=== PATIENT | female | born 1975 | race Caucasian/White ===

== ENCOUNTER 2016-11-04 15:12 | Inpatient (IN) | payer OTHER ==
[2016-11-04 15:57] VITALS: BMI 22.3
--- NOTE | 2016-11-04 16:33 | HP ---
COWS - Scale Resting Pulse: 1= [place] 81-100 Sweatin= Chills/Flushing Restless Observation: 0= Sits Still Pupil Size: 0= Normal to Room Light Bone or Joint Aches: 1= Mild Discomfort Runny Nose/ Eye Tearin= None GI Upset > 30mins: 0= None Tremor Observation: 0= None Yawning Observation: 0= None Anxiety or Irritability: 0= None Goose Flesh Skin: 0=Smooth Skin COWS Score: 3 CIWA Score - CIWA Score Nausea/Vomitin-Mild Nausea/No Vomiting Muscle Tremors: 1-None Visible, but [place] Anxiety: 1-Mildly Anxious Agitation: 1-Slight > Activity Paroxysmal Sweats: 1-Minimal Palms Moist Orientation: 0-Oriented Tacttile Disturbances: 1-Very Mild Itch/Numbness Auditory Disturbances: 0-None Visual Disturbances: 0-None Headache: 0-None Present CIWA-Ar Total Score: 6 Admission ROS BHS - HPI Chief Complaint: I need help to stop using drugs Allergies/Adverse Reactions: Allergies Allergy/AdvReac Type Severity Reaction Status Date / Time No Known Allergies Allergy Verified 11/04/16 16:00 History of Present Illness: 41 y/o f pt with a h/o opioid and benzo dep. seeking detox . Exam Limitations: No Limitations - Ebola screening Have you traveled outside of the country in the last 21 days: No Have you had contact with anyone from an Ebola affected area: No Have you been sick,other than usual withdrawal symptoms: No - Review of Systems Constitutional: Night Sweats, Changes in sleep EENT: reports: No Symptoms Reported Respiratory: reports: No Symptoms reported Cardiac: reports: No Symptoms Reported GI: reports: Nausea, Poor Appetite : reports: No Symptoms Reported Musculoskeletal: reports: No Symptoms Reported, Muscle Pain, Joint Stiffness Integumentary: reports: No Symptoms Reported Neuro: reports: No Symptoms reported Endocrine: reports: No Symptoms Reported Hematology: reports: No Symptoms Reported Psychiatric: reports: Anxious, Depressed Other Systems: Reviewed and Negative Patient History - Patient Medical History Hx Anemia: No Hx Asthma: No Hx Chronic Obstructive Pulmonary Disease (COPD): No Hx Cancer: No Hx Cardiac Disorders: No Hx Congestive Heart Failure: No Hx Hypertension: No Hx Hypercholesterolemia: No Hx Pacemaker: No HX Cerebrovascular Accident: No Hx Seizures: Yes (seizure last 10 yrs ago.) Hx Dementia: No Hx Diabetes: No Hx Gastrointestinal Disorders: No Hx Liver Disease: No Hx Genitourinary Disorders: No Hx Sexually Transmitted Disorders: No Hx Renal Disease (ESRD): No Hx Thyroid Disease: No Hx Human Immunodeficiency Virus (HIV): No (negative 2months ago ) Hx Hepatitis C: No Hx Depression: Yes Hx Suicide Attempt: No Hx Bipolar Disorder: No Hx Schizophrenia: No - Patient Surgical History Past Surgical History: Yes Hx Breast Surgery: Yes (augmentation) Hx Orthopedic Surgery: Yes (R shoulder and upper arm sx 2013) Anesthesia Reaction: No - PPD History Previous Implant?: Yes Documented Results: Negative w/o proof Implanted On Prior [facility] Admission?: Yes Date: 04/05/13 Results: 0 mm - Reproductive History Last Menstrual Period: 09/25/12 Patient : No - Smoking Cessation Smoking history: Current every day smoker Have you smoked in the past 12 months: Yes Aproximately how many cigarettes per day: 30 Hx Chewing Tobacco Use: No Initiated information on smoking cessation: Yes 'Breaking Loose' booklet given: 11/04/16 - Substance & Tx. History Hx Alcohol Use: Yes Hx Substance Use: Yes Substance Use Type: Alcohol, Heroin, Opiates, Tranquilizers Hx Substance Use Treatment: Yes - Substances Abused Heroin Route: Injection Frequency: Daily Amount used: 5 bags Age of first use: 36 Date of Last Use: 11/04/16 Alcohol Route: Oral Frequency: Daily Amount used: 3 16 oz beers Age of first use: 36 Date of Last Use: 10/30/16 Alprazolam (Xanax) Route: Oral Frequency: Daily Amount used: 8mg /d Age of first use: 23 Date of Last Use: 11/04/16 Family Disease History - Family Disease History Family History: Denies Admission Physical Exam BHS - Vital Signs Vital Signs: Vital Signs - 24 hr 11/04/16 15:52 Temperature 96 F L Pulse Rate 112 H Respiratory 20 Rate Blood Pressure 118/73 41 y/o f pt aox3 in nad cooperative with exam. - Physical General Appearance: Yes: Intoxicated, Anxious HEENTM: Yes: EOMI, Hearing grossly Normal, Normocephalic, Normal Voice, MAXX, Muffled/Hoarse Voice Respiratory: Yes: Chest Non-Tender, Lungs Clear, Normal Breath Sounds, No Respiratory Distress Neck: Yes: Supple Breast: Yes: Breast Exam Deferred Cardiology: Yes: Regular Rhythm, S1, S2, Tachycardia Abdominal: Yes: Non Tender, Flat, Soft, Increased Bowel Sounds Genitourinary: Yes: Within Normal Limits Back: Yes: Decreased Range of Motion Neurological: Yes: measurer machine II-XII NML intact, Fully Oriented, Alert, Motor Strength 5/5, Normal Response Integumentary: Yes: Moist, Track [place] Lymphatic: Yes: Within Normal Limits - Diagnostic (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 (2) Alcohol dependence Current Visit: Yes Status: Chronic Qualifiers: Substance use status: uncomplicated Qualified Code(s): F10.20 - Alcohol dependence, uncomplicated (3) Anxiety Disorder NOS Current Visit: Yes Status: Chronic (4) Nicotine dependence Current Visit: Yes Status: Chronic Qualifiers: Nicotine product type: cigarettes Substance use status: uncomplicated Qualified Code(s): F17.210 - Nicotine dependence, cigarettes, uncomplicated (5) Opioid dependence Current Visit: Yes Status: Chronic Qualifiers: Substance use status: uncomplicated Qualified Code(s): F11.20 - Opioid dependence, uncomplicated Cleared for Admission [facility] - Detox or Rehab [facility] Level of Care: Medically Managed Detox Regimen/Protocol: Methadone/Valium [facility] Breath Alcohol Content Breath Alcohol Content: 0 Urine Pregancy Test - Result Urine Test Results: Negative- NO Line Present Urine Drug Screen - Results Drug Screen Negative: No Urine Drug Screen Results: OPI-Opiates, BZO-Benzodiazepines, MTD-Methadone, OXY- Oxycodone
[2016-11-04] MEDS ORDERED: LOPERAMIDE HCL 2 MG CAPSULE PO PRN (17:33)
[2016-11-04] MEDS ORDERED: guaiFENesin/D-METHORPHAN HB 10 ML UNIT-DOSE CUPS PO PRN (17:33)
[2016-11-04] MEDS ORDERED: P-EPHED 60MG/TRIPROLIDI 2.5MG TABLET PO PRN (17:33)
[2016-11-04] MEDS ORDERED: MAGNESIUM CITRATE 300 ML BOTTLE PO PRN (17:33)
[2016-11-04] MEDS ORDERED: MAGNESIUM HYDROX 2400MG/30ML ORAL SUSPENSION 30 ML CUP PO PRN (17:33)
[2016-11-04] MEDS ORDERED: NICOTINE POLACRILEX 4 MG GUM BUC PRN (17:33)
[2016-11-04] MEDS ORDERED: MENTHOL/PHENOL 1 EACH UD MM PRN (17:33)
[2016-11-04] MEDS ORDERED: MAG HYDROX/AL HYDROX/SIMETH 30 ML UNIT-DOSE CUP PO PRN (17:33)
[2016-11-04] MEDS ORDERED: hydrOXYzine PAMOATE 25 MG CAPSULE (FP) PO PRN (17:33)
[2016-11-04] MEDS ORDERED: ACETAMINOPHEN 325 MG TABLET (FP) PO PRN (17:33)
[2016-11-04] MEDS ORDERED: diazePAM 5 MG TABLET PO PRN (17:53)
[2016-11-04] MEDS ORDERED: METHADONE HCL 10 MG TABLET (FOR DETOX USE ONLY) PO ONE ×2 (18:00→23:00)
[2016-11-04] MEDS ORDERED: diazePAM 5 MG TABLET PO ONE (18:00)
[2016-11-04] MEDS ORDERED: diphenhydrAMINE HCL 50 MG CAPSULE PO PRN (22:00)
[2016-11-04] MEDS: THIAMINE HCL 100 MG TABLET (FP) PO SCH (22:14)
[2016-11-04] MEDS: diazePAM 5 MG TABLET PO SCH (22:39)
[2016-11-04 23:18] LABS: URINE APPEARANCE CLOUDY; URINE BILIRUBIN NEGATIVE (NEGATIVE); URINE COLOR DKYELLOW; URINE GLUCOSE (UA) NEGATIVE (NEGATIVE); URINE KETONE NEGATIVE (NEGATIVE); URINE NITRITE POSITIVE (NEGATIVE); URINE UROBILINOGEN NEGATIVE E.U./dl (0.2-1.0)
[2016-11-04 23:23] LABS: URINE BLOOD 1+ (NEGATIVE); URINE LEUK ESTERASE 3+ (NEGATIVE); URINE PROTEIN 1+ (NEGATIVE)
[2016-11-04 23:24] LABS: URINE BACTERIA MODERATE /hpf (NONE SEEN); URINE MUCUS MANY; URINE RBC 52 /hpf (0-3); URINE WBC 725 /hpf (3-5); YEAST MODERATE
[2016-11-05] MEDS: diazePAM 5 MG TABLET PO SCH ×3 (05:47→22:37)
[2016-11-05] MEDS ORDERED: METHADONE HCL 10 MG TABLET (FOR DETOX USE ONLY) PO SCH (10:00)
--- NOTE | 2016-11-05 10:07 | PN ---
S CIWA - CIWA Score Nausea/Vomitin Muscle Tremors: 3 Anxiety: 3 Agitation: 3 Paroxysmal Sweats: 1-Minimal Palms Moist Orientation: 0-Oriented Tacttile Disturbances: 1-Very Mild Itch/Numbness Auditory Disturbances: 1-Very Mild Visual Disturbances: 1-Very Mild Sensitivity Headache: 2-Mild CIWA-Ar Total Score: 18 BHS COWS - Scale Resting Pulse: 2= [place] 101-120 Sweatin= Chills/Flushing Restless Observation: 3= Extraneous Movement Pupil Size: 1= Pupils >than Normal Bone or Joint Aches: 2= Severe Diffuse Aches Runny Nose/ Eye Tearin= Runny Nose/Eyes GI Upset > 30mins: 3= Vomiting/Diarrhea Tremor Observation of Outstretched Hands: 2= Slight Tremor Visible Yawning Observation: 1= 1-2x During Session Anxiety or Irritability: 2=Irritable/Anxious Goose Flesh Skin: 0=Smooth Skin COWS Score: 19 S Progress Note (SOAP) Subjective: alert,irritable,anxious,interrupted sleep,tremor,pain in the body and back Objective: 11/05/16 10:04 Vital Signs Temperature 97.7 F 11/05/16 06:00 Pulse Rate 87 11/05/16 06:00 Respiratory Rate 18 11/05/16 06:00 Blood Pressure 108/56 11/05/16 06:00 O2 Sat by Pulse Oximetry (%) 11/05/16 10:05 ekg nsr prolong qt Laboratory Last Values Urine Color Dkyellow 11/04/16 23:02 Urine Appearance Cloudy 11/04/16 23:02 Urine pH 5.0 (5.0-8.0) 11/04/16 23:02 Ur Specific [place] 1.026 (1.001-1.035) 11/04/16 23:02 Urine Protein 1+ (NEGATIVE) H 11/04/16 23:02 Urine Glucose (UA) Negative (NEGATIVE) 11/04/16 23:02 Urine Ketones Negative (NEGATIVE) 11/04/16 23:02 Urine Blood 1+ (NEGATIVE) H 11/04/16 23:02 Urine Nitrite Positive (NEGATIVE) 11/04/16 23:02 Urine Bilirubin Negative (NEGATIVE) 11/04/16 23:02 Urine Urobilinogen Negative E.U./dl (0.2-1.0) 11/04/16 23:02 Ur Leukocyte Esterase 3+ (NEGATIVE) H D 11/04/16 23:02 Urine RBC 52 /hpf (0-3) 11/04/16 23:02 Urine WBC 725 /hpf (3-5) 11/04/16 23:02 Ur Epithelial Cells Moderate /hpf (FEW) 11/04/16 23:02 Urine Bacteria Moderate /hpf (NONE SEEN) 11/04/16 23:02 Urine Mucus Many 11/04/16 23:02 Urine Yeast Moderate 11/04/16 23:02 labs pending Assessment: 11/05/16 10:06 withdrawal symptom Plan: continue detox,repeat ua and urine for c/s for uti,started on bactrim ds 1 tab po bid
[2016-11-05] MEDS: PRENATAL VITAMINS W/ FOLIC ACID TABLET (FP) PO SCH (10:17)
[2016-11-05] MEDS: NICOTINE 21 MG/24 HOURS TOPICAL PATCH TD SCH (10:18)
[2016-11-05] MEDS: SULFAMETHOXAZOLE/TRIMETHOPRIM 800MG/160MG D.S. TABLET PO SCH ×2 (10:19→22:37)
[2016-11-05 10:23] LABS: MCH 27.9 pg (25.7-33.7); MCHC 33.4 g/dl (32.0-36.0); MEAN CELL VOLUME 83.6 fl (80-96); MEAN PLT VOLUME 8.2 fl (7.5-11.1); PLATELET COUNT 232 K/MM3 (134-434); RDW 16.7 % (11.6-15.6); WHITE BLOOD COUNT 4.1 K/mm3 (4.0-10.0)
[2016-11-05 11:45] LABS: HIV 1 & 2 AB NEGATIVE; HIV 1 AGp24 NEGATIVE
[2016-11-05 11:48] LABS: ALBUMIN 2.9 g/dl (3.4-5.0); ALK PHOS 92 U/L (45-117); ANION GAP 7 (8-16); BILIRUBIN,TOTAL 0.4 mg/dL (0.2-1.0); CALCIUM 8.5 mg/dL (8.5-10.1); CO2 29 mmol/L (21-32); CREATININE 0.4 mg/dL (0.55-1.02); GLUCOSE,RANDOM 104 mg/dL (74-106); SGOT/AST 38 U/L (15-37); SGPT/ALT 44 U/L (12-78)
[2016-11-05] MEDS: cloNIDine HCL 0.1 MG TABLET PO SCH ×2 (12:05→23:12)
[2016-11-05] MEDS: CYCLOBENZAPRINE HCL 10 MG TABLET (FP) PO PRN ×2 (12:05→22:37)
--- NOTE | 2016-11-05 13:43 | CONSULT ---
[facility] Psychiatric Consult - Data Date of interview: 11/05/16 Admission source: [facility] Identifying data: Readmission to [facility] for this 41 y/o female seeking detox treatment for alcohol,heroin and xanax dependence.Patient is without children,domiciled,unemployed and supported by relatives. Substance Abuse History: Smoking Cessation. Smoking history: Current every day smoker. Have you smoked in the past 12 months: Yes. Aproximately how many cigarettes per day: 30. Hx Chewing Tobacco Use: No. Initiated information on smoking cessation: Yes. 'Breaking Loose' booklet given: 11/04/16. - Substance & Tx. History. Hx Alcohol Use: Yes. Hx Substance Use: Yes. Substance Use Type : Alcohol, Heroin, Opiates, Tranquilizers. Hx Substance Use Treatment: Yes. - Substances Abused. Heroin. Route: Injection. Frequency: Daily. Amount used: 5 bags. Age of first use: 36. Date of Last Use: 11/04/16. Alcohol. Route: Oral. Frequency: Daily. Amount used: 3 16 oz beers. Age of first use: 36. Date of Last Use: 10/30/16. Alprazolam (Xanax). Route: Oral. Frequency: Daily. Amount used: 8mg /d. Age of first use: 23. Date of Last Use : 11/04/16. Confirmed by patient. Medical History: Sciatica and chronic back pain.Current complaint of pain in right shoulder. Psychiatric History: No history of psychiatric hospitalizations.Prescribed xanax and remeron 30 mg/hs for insomnia.Ms Boss is followed by a private psychiatrist in [facility].Diagnosed with MDD/Anxiety Disorder.Patient denies history of suicide attempts. Physical/Sexual Abuse/Trauma History: Patient denies. Additional Comment: Urine Drug Screen Results: OPI-Opiates, BZO-Benzodiazepines , MTD-Methadone, OXY-Oxycodone.Noted. Mental Status Exam - Mental Status Exam Alert and Oriented to: Time, Place, Person Cognitive Function: Good Patient Appearance: Unkempt, Disheveled Mood: Withdrawn, Anxious, Irritable Affect: Mood Congruent Patient Behavior: Fatigued, Guarded Speech Pattern: Clear, Appropriate Voice Loudness: Normal Thought Process: Goal Oriented Thought Disorder: Not Present Hallucinations: Denies Suicidal Ideation: Denies Homicidal Ideation: Denies Insight/Judgement: Poor Sleep: Poorly, Difficulty falling asleep Appetite: Good Muscle strength/Tone: Normal Gait/Station: Normal Psychiatric Findings - Problem List ([place] 1, 2,3) (1) Alcohol dependence Current Visit: Yes Status: Acute Qualifiers: Substance use status: uncomplicated Qualified Code(s): F10.20 - Alcohol dependence, uncomplicated (2) Opioid dependence Current Visit: Yes Status: Acute Qualifiers: Substance use status: uncomplicated Qualified Code(s): F11.20 - Opioid dependence, uncomplicated (3) Sedative dependence Current Visit: Yes Status: Acute (4) Nicotine dependence Current Visit: Yes Status: Acute Qualifiers: Nicotine product type: cigarettes Substance use status: uncomplicated Qualified Code(s): F17.210 - Nicotine dependence, cigarettes, uncomplicated (5) Anxiety Disorder NOS Current Visit: Yes Status: Chronic (6) Insomnia Current Visit: Yes Status: Acute - Initial Treatment Plan Initial Treatment Plan: Psychoeducation.Detoxification.Remeron 30 mg po hs.Side effects/benefits discussed with the patient.She agrees with this careplan.Observation.Pharmacy claims reviewed (filled scripts for remeron on 05/27 @ [facility] # [id number]).No scripts needed at discharge.
--- NOTE | 2016-11-05 13:46 | EKG ---
Test Reason : Blood Pressure : / mmHG Vent. Rate : 100 BPM Atrial Rate : 100 BPM P-R Int : 140 ms QRS Dur : 080 ms QT Int : 398 ms P-R-T Axes : 064 047 060 degrees QTc Int : 513 ms NORMAL SINUS RHYTHM PROLONGED QT ABNORMAL ECG WHEN COMPARED WITH ECG OF 24-FEB-2013 12:52, NO SIGNIFICANT CHANGE WAS FOUND Confirmed by JEAN RAY MD ([id number]) on 11/05/2016 1:46:37 PM Referred By: Confirmed By:JEAN RAY MD
[2016-11-05] MEDS: IBUPROFEN 400 MG TABLET (FP) PO PRN (14:07)
[2016-11-05] MEDS: THIAMINE HCL 100 MG TABLET (FP) PO SCH (22:37)
[2016-11-05] MEDS: MIRTAZAPINE 30 MG TABLET (FP) PO SCH (22:37)
[2016-11-05 23:25] LABS: URINE APPEARANCE CLOUDY; URINE BILIRUBIN NEGATIVE (NEGATIVE); URINE COLOR YELLOW; URINE GLUCOSE (UA) NEGATIVE (NEGATIVE); URINE KETONE NEGATIVE (NEGATIVE); URINE NITRITE POSITIVE (NEGATIVE); URINE PROTEIN NEGATIVE (NEGATIVE); URINE UROBILINOGEN NEGATIVE E.U./dl (0.2-1.0)
[2016-11-05 23:26] LABS: URINE BLOOD 1+ (NEGATIVE); URINE LEUK ESTERASE 3+ (NEGATIVE)
[2016-11-05 23:30] LABS: URINE BACTERIA RARE /hpf (NONE SEEN); URINE MUCUS RARE; URINE RBC 13 /hpf (0-3); URINE WBC 610 /hpf (3-5)
[2016-11-06] MEDS: NICOTINE 21 MG/24 HOURS TOPICAL PATCH TD SCH (10:30)
[2016-11-06] MEDS: METHADONE HCL 5 MG TABLET (FOR DETOX USE ONLY) PO SCH (10:30)
[2016-11-06] MEDS: cloNIDine HCL 0.1 MG TABLET PO SCH ×2 (10:30→22:31)
[2016-11-06] MEDS: SULFAMETHOXAZOLE/TRIMETHOPRIM 800MG/160MG D.S. TABLET PO SCH ×2 (10:30→22:31)
[2016-11-06] MEDS: diazePAM 5 MG TABLET PO SCH ×2 (10:30→22:31)
[2016-11-06] MEDS: CYCLOBENZAPRINE HCL 10 MG TABLET (FP) PO PRN (10:30)
[2016-11-06] MEDS: PRENATAL VITAMINS W/ FOLIC ACID TABLET (FP) PO SCH (10:30)
--- NOTE | 2016-11-06 10:38 | PN ---
[facility] CIWA - CIWA Score Nausea/Vomitin Muscle Tremors: 3 Anxiety: 3 Agitation: 2 Paroxysmal Sweats: 1-Minimal Palms Moist Orientation: 0-Oriented Tacttile Disturbances: 1-Very Mild Itch/Numbness Auditory Disturbances: 1-Very Mild Visual Disturbances: 1-Very Mild Sensitivity Headache: 2-Mild CIWA-Ar Total Score: 17 BHS COWS - Scale Resting Pulse: 1= [place] 81-100 Sweatin= Chills/Flushing Restless Observation: 3= Extraneous Movement Pupil Size: 1= Pupils >than Normal Bone or Joint Aches: 2= Severe Diffuse Aches Runny Nose/ Eye Tearin= Runny Nose/Eyes GI Upset > 30mins: 2= Nausea/Diarrhea Tremor Observation of Outstretched Hands: 2= Slight Tremor Visible Yawning Observation: 1= 1-2x During Session Anxiety or Irritability: 2=Irritable/Anxious Goose Flesh Skin: 0=Smooth Skin COWS Score: 17 [facility] Progress Note (SOAP) Subjective: ALERT,IRRITABLE,ANXIOUS,INTERRUPTED SLEEP,PAIN IN THE BODY AND BACK Objective: 11/06/16 10:36 Vital Signs Temperature 97.2 F L 11/06/16 10:20 Pulse Rate 93 H 11/06/16 10:20 Respiratory Rate 20 11/06/16 10:20 Blood Pressure 109/83 11/06/16 10:20 O2 Sat by Pulse Oximetry (%) Laboratory Last Values WBC 4.1 K/mm3 (4.0-10.0) D 11/05/16 07:00 RBC 3.97 M/mm3 (3.60-5.2) 11/05/16 07:00 Hgb 11.1 GM/dL (10.7-15.3) D 11/05/16 07:00 Hct 33.2 % (32.4-45.2) 11/05/16 07:00 MCV 83.6 fl (80-96) 11/05/16 07:00 MCHC 33.4 g/dl (32.0-36.0) 11/05/16 07:00 RDW 16.7 % (11.6-15.6) H 11/05/16 07:00 Plt Count 232 K/MM3 (134-434) 11/05/16 07:00 MPV 8.2 fl (7.5-11.1) D 11/05/16 07:00 Sodium 140 mmol/L (136-145) 11/05/16 07:00 Potassium 3.7 mmol/L (3.5-5.1) D 11/05/16 07:00 Chloride 104 mmol/L (98-107) 11/05/16 07:00 Carbon Dioxide 29 mmol/L (21-32) 11/05/16 07:00 Anion Gap 7 (8-16) L 11/05/16 07:00 BUN 9 mg/dL (7-18) D 11/05/16 07:00 Creatinine 0.4 mg/dL (0.55-1.02) L D 11/05/16 07:00 Creat Clearance w eGFR > 60 (>60) 11/05/16 07:00 Random Glucose 104 mg/dL (74-106) D 11/05/16 07:00 Calcium 8.5 mg/dL (8.5-10.1) 11/05/16 07:00 Total Bilirubin 0.4 mg/dL (0.2-1.0) 11/05/16 07:00 AST 38 U/L (15-37) H D 11/05/16 07:00 ALT 44 U/L (12-78) 11/05/16 07:00 Alkaline Phosphatase 92 U/L (45-117) D 11/05/16 07:00 Total Protein 6.0 g/dl (6.4-8.2) L D 11/05/16 07:00 Albumin 2.9 g/dl (3.4-5.0) L D 11/05/16 07:00 Urine Color Yellow 11/05/16 14:04 Urine Appearance Cloudy 11/05/16 14:04 Urine pH 5.0 (5.0-8.0) 11/05/16 14:04 Ur Specific [place] 1.015 (1.001-1.035) 11/05/16 14:04 Urine Protein Negative (NEGATIVE) 11/05/16 14:04 Urine Glucose (UA) Negative (NEGATIVE) 11/05/16 14:04 Urine Ketones Negative (NEGATIVE) 11/05/16 14:04 Urine Blood 1+ (NEGATIVE) H 11/05/16 14:04 Urine Nitrite Positive (NEGATIVE) 11/05/16 14:04 Urine Bilirubin Negative (NEGATIVE) 11/05/16 14:04 Urine Urobilinogen Negative E.U./dl (0.2-1.0) 11/05/16 14:04 Ur Leukocyte Esterase 3+ (NEGATIVE) H 11/05/16 14:04 Urine RBC 13 /hpf (0-3) 11/05/16 14:04 Urine WBC 610 /hpf (3-5) 11/05/16 14:04 Ur Epithelial Cells Many /hpf (FEW) 11/05/16 14:04 Urine Bacteria Rare /hpf (NONE SEEN) 11/05/16 14:04 Urine Mucus Rare 11/05/16 14:04 Urine Yeast Moderate 11/04/16 23:02 RPR Titer Nonreactive (NONREACTIVE) 11/05/16 07:00 HIV 1&2 Antibody Screen Negative 11/05/16 07:00 HIV P24 Antigen Negative 11/05/16 07:00 Assessment: 11/06/16 10:37 WITHDRAWAL SYMPTOM Plan: CONTINUE DETOX,URINE FOR C/S
[2016-11-06] MEDS: IBUPROFEN 400 MG TABLET (FP) PO PRN (19:47)
[2016-11-06] MEDS: THIAMINE HCL 100 MG TABLET (FP) PO SCH (22:31)
[2016-11-06] MEDS: MIRTAZAPINE 30 MG TABLET (FP) PO SCH (22:31)
[2016-11-07] MEDS: CYCLOBENZAPRINE HCL 10 MG TABLET (FP) PO PRN ×2 (06:21→20:55)
[2016-11-07] MEDS: IBUPROFEN 400 MG TABLET (FP) PO PRN ×2 (06:21→13:06)
[2016-11-07] MEDS: SULFAMETHOXAZOLE/TRIMETHOPRIM 800MG/160MG D.S. TABLET PO SCH ×2 (10:26→22:07)
[2016-11-07] MEDS: diazePAM 5 MG TABLET PO SCH ×2 (10:26→22:07)
[2016-11-07] MEDS: METHADONE HCL 5 MG TABLET (FOR DETOX USE ONLY) PO SCH (10:26)
[2016-11-07] MEDS: cloNIDine HCL 0.1 MG TABLET PO SCH ×2 (10:26→22:09)
[2016-11-07] MEDS: PRENATAL VITAMINS W/ FOLIC ACID TABLET (FP) PO SCH (10:26)
[2016-11-07] MEDS: NICOTINE 21 MG/24 HOURS TOPICAL PATCH TD SCH (10:26)
--- NOTE | 2016-11-07 14:03 | PN ---
S Progress Note (SOAP) Subjective: ALERT,IRRITABLE,ANXIOUS,INTERRUPTED SLEEP,ACHING PAIN Objective: 11/07/16 14:03 Vital Signs Temperature 97.2 F L 11/07/16 10:25 Pulse Rate 83 11/07/16 10:25 Respiratory Rate 18 11/07/16 10:25 Blood Pressure 101/71 11/07/16 10:25 O2 Sat by Pulse Oximetry (%) 11/07/16 14:04 URINE FOR C/S PENDING Assessment: 11/07/16 14:04 WITHDRAWAL SYMPTOM Plan: CONTINUE DETOX
[2016-11-07] MEDS: MIRTAZAPINE 30 MG TABLET (FP) PO SCH (22:07)
[2016-11-07] MEDS: THIAMINE HCL 100 MG TABLET (FP) PO SCH (22:07)
[2016-11-08] MEDS ORDERED: METHADONE HCL 10 MG TABLET (FOR DETOX USE ONLY) PO SCH (10:00)
[2016-11-08] MEDS ORDERED: diazePAM 5 MG TABLET PO SCH (10:00)
--- NOTE | 2016-11-08 10:16 | PN ---
[facility] Progress Note (SOAP) Subjective: feeling better little sweats anxious Objective: 11/08/16 10:15 Vital Signs Temperature 97.7 F 11/08/16 06:00 Pulse Rate 64 11/08/16 06:00 Respiratory Rate 16 11/08/16 06:00 Blood Pressure 100/58 11/08/16 06:00 O2 Sat by Pulse Oximetry (%) awake/alert ambulating no acute distress Assessment: 11/08/16 10:15 withdrawal sx Plan: continue detox increase fluids d/c in am
[2016-11-08] MEDS: SULFAMETHOXAZOLE/TRIMETHOPRIM 800MG/160MG D.S. TABLET PO SCH ×2 (10:33→22:10)
[2016-11-08] MEDS: cloNIDine HCL 0.1 MG TABLET PO SCH ×2 (10:33→22:10)
[2016-11-08] MEDS: PRENATAL VITAMINS W/ FOLIC ACID TABLET (FP) PO SCH (10:33)
[2016-11-08] MEDS: NICOTINE 21 MG/24 HOURS TOPICAL PATCH TD SCH (10:33)
[2016-11-08] MEDS: IBUPROFEN 400 MG TABLET (FP) PO PRN ×2 (10:37→19:36)
--- NOTE | 2016-11-08 12:52 | PN ---
[facility] Progress Note Note: Psychiatry Attending's note : Asked to reconsult. Issue : refractory insomnia.Remeron 30 mg/hs not effective. Ms Boss gets 60 mg/hs from her outpatient psychiatrist. Hospital course is otherwise unremarkable.Patient is stable. About to transition to a rehabilitation program in the morning. Intervention : Principles of sleep hygiene are discussed with the patient. Remeron is increased to 45 mg po hs.See new Orders. Side effects/benefits discussed with patient. Ms Boss is in agreement with this careplan. .
[2016-11-08] MEDS ORDERED: MIRTAZAPINE 15 MG TABLET (FP) PO SCH (22:00)
[2016-11-08] MEDS: THIAMINE HCL 100 MG TABLET (FP) PO SCH (22:11)
[2016-11-09] MEDS ORDERED: METHADONE HCL 5 MG TABLET (FOR DETOX USE ONLY) PO SCH (06:00)
[2016-11-09 06:33] VITALS: BP 106/53; PULSE 84; TEMP 97.3
--- NOTE | 2016-11-09 09:08 | DS ---
[facility] Detox Discharge Summary Admission Date: 11/04/16 Discharge Date: 11/09/16 - History Present History: Alcohol Dependence, Cannabis Dependence, Cocaine Dependence, Opioid Dependence - Physical Exam Results Vital Signs: Vital Signs Temperature 97.3 F L 11/09/16 06:00 Pulse Rate 84 11/09/16 06:00 Respiratory Rate 16 11/09/16 06:00 Blood Pressure 106/53 11/09/16 06:00 O2 Sat by Pulse Oximetry (%) - Treatment Hospital Course: Detox Protocol Followed, Detoxed Safely, Responded well, Discharged Condition Good - Medication Discharge Medications: Ambulatory Orders Escitalopram Oxalate [Lexapro -] 10 mg PO DAILY 11/04/16 Mirtazapine [Remeron -] 60 mg PO HS 11/04/16 Sulfamethoxazole/Trimethoprim [Bactrim DS -] 1 each PO BID #14 tablet 11/09/16 - Diagnosis (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 (2) Alcohol dependence Current Visit: Yes Status: Chronic Qualifiers: Substance use status: uncomplicated Qualified Code(s): F10.20 - Alcohol dependence, uncomplicated (3) Anxiety Disorder NOS Current Visit: Yes Status: Chronic (4) Nicotine dependence Current Visit: Yes Status: Chronic Qualifiers: Nicotine product type: cigarettes Substance use status: uncomplicated Qualified Code(s): F17.210 - Nicotine dependence, cigarettes, uncomplicated (5) Opioid dependence Current Visit: Yes Status: Chronic Qualifiers: Substance use status: uncomplicated Qualified Code(s): F11.20 - Opioid dependence, uncomplicated (6) UTI (urinary tract infection) Current Visit: Yes Status: Acute Qualifiers: Urinary tract infection type: acute cystitis - AMA Did Patient Leave Against Medical Advice: No
== END 2016-11-09 09:00 | disposition home or self-care (01) | DRG 773 ==
LOC: YASAS 15:12 → Y6N 16:36
PROVIDERS: ADMIT Internal Medicine Addiction Medicine; ATTEND Internal Medicine Addiction Medicine
PROC: HZ2ZZZZ Detoxification Services for Substance Abuse Treatment (ICD-10-PCS; principal; 2016-11-09)
DX: F11.20 Opioid dependence, uncomplicated (principal); F13.20 Sedative, hypnotic or anxiolytic dependence, uncomplicated; F10.20 Alcohol dependence, uncomplicated; F17.210 Nicotine dependence, cigarettes, uncomplicated; F41.9 Anxiety disorder, unspecified; G47.00 Insomnia, unspecified; N30.00 Acute cystitis without hematuria
CPT/HCPCS: 36415; 80053; 81003; 81015; 85027; 86593; 87086; 87186; 87389; 93005; 93010

== ENCOUNTER 2017-06-28 12:57 | Inpatient (IN) | payer OTHER ==
[2017-06-28 13:59] VITALS: BMI 21.2
--- NOTE | 2017-06-28 19:18 | HP ---
COWS - Scale Resting Pulse: 2= [place] 101-120 Sweatin= Chills/Flushing Restless Observation: 3= Extraneous Movement Pupil Size: 0= Normal to Room Light Bone or Joint Aches: 2= Severe Diffuse Aches Runny Nose/ Eye Tearin= Nasal Congestion GI Upset > 30mins: 3= Vomiting/Diarrhea Tremor Observation: 2= Slight Tremor Visible Yawning Observation: 0= None Anxiety or Irritability: 1=Feels Anxious/Irritable Goose Flesh Skin: 0=Smooth Skin COWS Score: 15 Admission [facility] Chief Complaint: withdrawal sx Allergies/Adverse Reactions: Allergies Allergy/AdvReac Type Severity Reaction Status Date / Time No Known Allergies Allergy Verified 06/28/17 16:41 History of Present Illness: 41 years old female with long history of heroin nicotine dependence has depression is admitted to detox Exam Limitations: No Limitations - Ebola screening Have you traveled outside of the country in the last 21 days: No Have you had contact with anyone from an Ebola affected area: No Have you been sick,other than usual withdrawal symptoms: No Do you have a fever: No - Review of Systems Constitutional: Loss of Appetite, Changes in sleep, Unintentional Wgt. Loss, Unexplained wgt Loss EENT: reports: No Symptoms Reported Respiratory: reports: SOB with Exertion Cardiac: reports: No Symptoms Reported GI: reports: Diarrhea, Nausea, Poor Appetite, Poor Fluid Intake, Vomiting, Abdominal cramping : reports: No Symptoms Reported Musculoskeletal: reports: Back Pain, Joint Pain, Muscle Pain, Neck Pain Integumentary: reports: Change in Color (iv heroin both arms + right lateral of neck), Rash (buttocks) Endocrine: reports: No Symptoms Reported Hematology: reports: No Symptoms Reported Psychiatric: reports: Judgement Intact, Orientated x3, Anxious, Depressed Other Systems: Reviewed and Negative Patient History - Patient Medical History Hx Anemia: No Hx Asthma: No Hx Chronic Obstructive Pulmonary Disease (COPD): Yes Hx Cancer: No Hx Cardiac Disorders: No Hx Congestive Heart Failure: No Hx Hypertension: No Hx Hypercholesterolemia: No Hx Pacemaker: No HX Cerebrovascular Accident: No Hx Seizures: No (seizure last 10 yrs ago.) Hx Dementia: No Hx Diabetes: No Hx Gastrointestinal Disorders: No Hx Liver Disease: No Hx Genitourinary Disorders: No Hx Sexually Transmitted Disorders: No Hx Renal Disease (ESRD): No Hx Thyroid Disease: No Hx Human Immunodeficiency Virus (HIV): No (negative 2months ago ) Hx Hepatitis C: No Hx Depression: Yes Hx Suicide Attempt: No Hx Bipolar Disorder: No Hx Schizophrenia: No - Patient Surgical History Past Surgical History: Yes Hx Neurologic Surgery: No Hx Cataract Extraction: No Hx Cardiac Surgery: No Hx Lung Surgery: No Hx Breast Surgery: Yes (augmentation) Hx Breast Biopsy: No Hx Abdominal Surgery: No Hx Appendectomy: No Hx Cholecystectomy: No Hx Genitourinary Surgery: No Hx Section: No Hx Orthopedic Surgery: Yes (R shoulder and upper arm sx 2013) Hx Hysterectomy: No Anesthesia Reaction: No - PPD History Previous Implant?: Yes Documented Results: Negative w/proof Implanted On Prior [facility] Admission?: Yes Date: 11/06/16 Results: 0 mm PPD to be Administered?: No - Reproductive History Patient is a Female of Child Bearing Age (11 -55 yrs old): Yes Last Menstrual Period: 06/28/15 Patient : No - Smoking Cessation Smoking history: Current every day smoker Have you smoked in the past 12 months: Yes Aproximately how many cigarettes per day: 20 Cigars Per Day: 0 Hx Chewing Tobacco Use: No Initiated information on smoking cessation: Yes 'Breaking Loose' booklet given: 06/28/17 - Substance & Tx. History Hx Alcohol Use: No Hx Substance Use: Yes Substance Use Type: Cocaine, Heroin Hx Substance Use Treatment: Yes (11/2016) - Substances Abused Heroin Route: Injection Frequency: 3-6 times per week Amount used: 3 bags Age of first use: 36 Date of Last Use: 06/28/17 Family Disease History - Family Disease History Family Disease History: Heart Disease: Grandparent, Other: Brother ( overdose) Admission Physical Exam BHS - Vital Signs Vital Signs: Vital Signs - 24 hr 06/28/17 13:45 Temperature 98.9 F Pulse Rate 104 H Respiratory 18 Rate Blood Pressure 114/70 - Physical General Appearance: Yes: Appropriately Dressed, Mild Distress, Thin, Tremorous, Irritable, Sweating, Anxious HEENTM: Yes: Hearing grossly Normal, Normal ENT Inspection, Normocephalic, Normal Voice Respiratory: Yes: Chest Non-Tender, No Respiratory Distress, No Accessory Muscle Use, Hyperresonant Neck: Yes: Supple, Trachea in good position Breast: Yes: Breasts Symetrical Cardiology: Yes: Regular Rhythm, S1, S2, Tachycardia Abdominal: Yes: Non Tender, Soft, Increased Bowel Sounds Genitourinary: Yes: Within Normal Limits Back: Yes: Normal Inspection Musculoskeletal: Yes: full range of Motion, Gait Steady, Back pain, Muscle Pain Extremities: Yes: Normal Range of Motion, Non-Tender, Tremors, Other (arms + right lateral neck iv heroin) Neurological: Yes: Fully Oriented, Alert, Motor Strength 5/5, Normal Response, Depressed Affect Integumentary: Yes: Warm, Rash (bottocks), Track Brito Lymphatic: Yes: Within Normal Limits - Diagnostic (1) Opioid dependence with withdrawal Current Visit: Yes Status: Acute (2) Nicotine dependence Current Visit: Yes Status: Acute Qualifiers: Nicotine product type: cigarettes Substance use status: in withdrawal Qualified Code(s): F17.213 - Nicotine dependence, cigarettes, with withdrawal (3) Weight loss Current Visit: Yes Status: Acute (4) COPD (chronic obstructive pulmonary disease) Current Visit: Yes Status: Chronic Qualifiers: COPD type: emphysema Emphysema type: panlobular Qualified Code(s): J43.1 - Panlobular emphysema (5) Acneiform rash Current Visit: Yes Status: Chronic Comment: bottocks Cleared for Admission [facility] - Detox or Rehab [facility] Level of Care: Medically Managed Detox Regimen/Protocol: Methadone [facility] Breath Alcohol Content Breath Alcohol Content: 0 Urine Pregancy Test - Result Urine Test Results: Negative- NO Line Present Urine Drug Screen - Results Drug Screen Negative: No Urine Drug Screen Results: MIHAELA-Cocaine, OPI-Opiates, AMP-Amphetamines, BZO- Benzodiazepines
[2017-06-28] MEDS ORDERED: MENTHOL/PHENOL 1 EACH UD MM PRN (19:25)
[2017-06-28] MEDS ORDERED: NICOTINE POLACRILEX 4 MG GUM BC PRN (19:25)
[2017-06-28] MEDS ORDERED: P-EPHED 60MG/TRIPROLIDI 2.5MG TABLET PO PRN (19:25)
[2017-06-28] MEDS ORDERED: IBUPROFEN 400 MG TABLET (FP) PO PRN (19:25)
[2017-06-28] MEDS ORDERED: guaiFENesin/D-METHORPHAN HB 10 ML UNIT-DOSE CUPS PO PRN (19:25)
[2017-06-28] MEDS ORDERED: METHADONE HCL 10 MG TABLET (FOR DETOX USE ONLY) PO ONE ×2 (19:25→23:00)
[2017-06-28] MEDS ORDERED: LOPERAMIDE HCL 2 MG CAPSULE PO PRN (19:25)
[2017-06-28] MEDS ORDERED: ACETAMINOPHEN 325 MG TABLET (FP) PO PRN (19:25)
[2017-06-28] MEDS ORDERED: MAGNESIUM CITRATE 300 ML BOTTLE PO PRN (19:25)
[2017-06-28] MEDS ORDERED: MAGNESIUM HYDROX 2400MG/30ML ORAL SUSPENSION 30 ML CUP PO PRN (19:25)
[2017-06-28] MEDS ORDERED: MAG HYDROX/AL HYDROX/SIMETH 30 ML UNIT-DOSE CUP PO PRN (19:25)
[2017-06-28] MEDS ORDERED: ALBUTEROL SO4 18 GM HFA INHALER IH PRN (19:36)
[2017-06-28] MEDS: diazePAM 5 MG TABLET PO PRN (20:47)
[2017-06-28] MEDS: THIAMINE HCL 100 MG TABLET (FP) PO SCH (22:27)
[2017-06-29 01:35] LABS: URINE APPEARANCE SLCLOUDY; URINE BILIRUBIN NEGATIVE (NEGATIVE); URINE BLOOD NEGATIVE (NEGATIVE); URINE COLOR YELLOW; URINE GLUCOSE (UA) NEGATIVE (NEGATIVE); URINE KETONE NEGATIVE (NEGATIVE); URINE LEUK ESTERASE NEGATIVE (NEGATIVE); URINE NITRITE NEGATIVE (NEGATIVE); URINE PROTEIN NEGATIVE (NEGATIVE); URINE UROBILINOGEN NEGATIVE mg/dL (0.2-1.0)
[2017-06-29 09:18] LABS: URINE LEUK ESTERASE Negative (NEGATIVE)
--- NOTE | 2017-06-29 09:58 | EKG ---
Test Reason : Blood Pressure : / mmHG Vent. Rate : 107 BPM Atrial Rate : 107 BPM P-R Int : 132 ms QRS Dur : 080 ms QT Int : 386 ms P-R-T Axes : 057 060 073 degrees QTc Int : 515 ms SINUS TACHYCARDIA CANNOT RULE OUT ANTERIOR INFARCT , AGE UNDETERMINED ABNORMAL ECG WHEN COMPARED WITH ECG OF 04-NOV-2016 16:58, NONSPECIFIC T WAVE ABNORMALITY NOW EVIDENT IN ANTERIOR LEADS Confirmed by ARELIS LUNDBERG, CHAGO ([id number]) on 06/29/2017 9:58:20 AM Referred By: Confirmed By:CHAGO INFANTE MD
[2017-06-29] MEDS ORDERED: METHADONE HCL 10 MG TABLET (FOR DETOX USE ONLY) PO ONE (10:00)
[2017-06-29 10:12] LABS: MCH 26.4 pg (25.7-33.7); MCHC 32.2 g/dl (32.0-36.0); MEAN CELL VOLUME 81.9 fl (80-96); MEAN PLT VOLUME 8.3 fl (7.5-11.1); PLATELET COUNT 292 K/MM3 (134-434); RDW 18.4 % (11.6-15.6); WHITE BLOOD COUNT 5.8 K/mm3 (4.0-10.0)
--- NOTE | 2017-06-29 10:17 | PN ---
BHS COWS - Scale Resting Pulse: 1= [place] 81-100 Sweatin=Flushed/Facial Moisture Restless Observation: 1= Difficult to Sit Still Pupil Size: 0= Normal to Room Light Bone or Joint Aches: 2= Severe Diffuse Aches Runny Nose/ Eye Tearin= Runny Nose/Eyes GI Upset > 30mins: 0= None Tremor Observation of Outstretched Hands: 2= Slight Tremor Visible Yawning Observation: 2= >3x During Session Anxiety or Irritability: 2=Irritable/Anxious Goose Flesh Skin: 0=Smooth Skin COWS Score: 14 BHS Progress Note (SOAP) Subjective: agitation sweats body aches interrupted sleep Objective: 06/29/17 10:16 Vital Signs Temperature 96.9 F L 06/29/17 06:13 Pulse Rate 86 06/29/17 06:13 Respiratory Rate 18 06/29/17 06:13 Blood Pressure 105/61 06/29/17 06:13 O2 Sat by Pulse Oximetry (%) Laboratory Tests 06/28/17 06/29/17 23:36 07:00 WBC 5.8 D RBC 4.05 Hgb 10.7 Hct 33.2 MCV 81.9 MCH 26.4 MCHC 32.2 RDW 18.4 H D Plt Count 292 D MPV 8.3 Urine Color Yellow Urine Appearance Slcloudy Urine pH 6.0 Ur Specific [place] 1.019 Urine Protein Negative Urine Glucose (UA) Negative Urine Ketones Negative Urine Blood Negative Urine Nitrite Negative Urine Bilirubin Negative Urine Urobilinogen Negative Ur Leukocyte Esterase Negative labs pending aaox4 ambulating no acute distress Assessment: 06/29/17 10:17 withdrawal sx Plan: continue detox increase fluids labs pending
[2017-06-29 10:19] LABS: ALBUMIN 3.1 g/dl (3.4-5.0); ALK PHOS 75 U/L (45-117); ANION GAP 7 (8-16); BILIRUBIN,TOTAL 0.3 mg/dL (0.2-1.0); CO2 26 mmol/L (21-32); CREATININE 0.7 mg/dL (0.55-1.02); GLUCOSE,RANDOM 90 mg/dL (74-106); SGOT/AST 10 U/L (15-37); SGPT/ALT 15 U/L (12-78); TOT PROT 6.1 g/dl (6.4-8.2)
[2017-06-29] MEDS: NICOTINE 21 MG/24 HOURS TOPICAL PATCH TD SCH (10:26)
[2017-06-29] MEDS: diazePAM 5 MG TABLET PO PRN ×3 (10:26→20:10)
[2017-06-29] MEDS: PRENATAL VITAMINS W/ FOLIC ACID TABLET (FP) PO SCH (10:26)
--- NOTE | 2017-06-29 11:21 | CONSULT ---
[facility] Psychiatric Consult - Data Date of interview: 06/29/17 Admission source: [facility] Identifying data: This is 41 years old female with no psychiatric hospitalization history intoxicated with: Opioids and Nicotine Substance Abuse History: - Smoking Cessation. Smoking history: Current every day smoker. Have you smoked in the past 12 months: Yes. Aproximately how many cigarettes per day: 20. Cigars Per Day: 0. Hx Chewing Tobacco Use: No. Initiated information on smoking cessation: Yes. 'Breaking Loose' booklet given : 06/28/17. - Substance & Tx. History. Hx Alcohol Use: No. Hx Substance Use: Yes. Substance Use Type: Cocaine, Heroin. Hx Substance Use Treatment: Yes (2016). - Substances Abused. Heroin. Route: Injection. Frequency: 3-6 times per week. Amount used: 3 bags. Age of first use: 36. Date of Last Use: 06/28/17 Medical History: Weight loss history, COPD Psychiatric History: PATIENT REPORTS HISTORY OF DEPRESSION AND ANXIETY, REPORTS TAKING PRIOR TO ADMISSION: REMERON 15MG PO QHS Physical/Sexual Abuse/Trauma History: Denies Additional Comment: REMERON 15MG PO QHS Mental Status Exam - Mental Status Exam Alert and Oriented to: Person Cognitive Function: Fair Patient Appearance: Unkempt Mood: Sad Affect: Flat Patient Behavior: Sedated Speech Pattern: Delayed Voice Loudness: Mildly Soft/Quiet Thought Process: Circumstantial Thought Disorder: Being Controlled Hallucinations: Denies Suicidal Ideation: Denies Homicidal Ideation: Denies Insight/Judgement: Fair Sleep: Difficulty falling asleep Appetite: Weight loss Muscle strength/Tone: Mild Hypotonicity Gait/Station: Shuffling Additional Comments: REMERON 15MG PO QHS Psychiatric Findings - Problem List ([place] 1, 2,3) (1) Drug-induced mood disorder Current Visit: Yes Status: Acute (2) Nicotine dependence Current Visit: Yes Status: Acute Qualifiers: Nicotine product type: cigarettes Substance use status: in withdrawal Qualified Code(s): F17.213 - Nicotine dependence, cigarettes, with withdrawal (3) Weight loss Current Visit: Yes Status: Acute (4) Opioid dependence with withdrawal Current Visit: Yes Status: Chronic (5) Methadone maintenance therapy patient Current Visit: No Status: Acute (6) Opioid dependence on agonist therapy Current Visit: No Status: Acute (7) Alcohol dependence Current Visit: No Status: Chronic Qualifiers: Substance use status: uncomplicated Qualified Code(s): F10.20 - Alcohol dependence, uncomplicated (8) Anxiety Disorder NOS Current Visit: No Status: Chronic (9) Nicotine dependence Current Visit: No Status: Chronic Qualifiers: Nicotine product type: cigarettes Substance use status: uncomplicated Qualified Code(s): F17.210 - Nicotine dependence, cigarettes, uncomplicated (10) Opioid dependence Current Visit: No Status: Chronic Qualifiers: Substance use status: uncomplicated Qualified Code(s): F11.20 - Opioid dependence, uncomplicated - Initial Treatment Plan Initial Treatment Plan: REMERON 15MG PO QHS
[2017-06-29 12:20] LABS: HIV 1 & 2 AB NEGATIVE; HIV 1 AGp24 NEGATIVE
[2017-06-29] MEDS ORDERED: MUPIROCIN 2% TOPICAL OINTMENT 22 GM TUBE TP SCH (14:00)
[2017-06-29] MEDS: MUPIROCIN 2% TOPICAL OINTMENT 22 GM TUBE TP SCH ×3 (14:57→22:12)
[2017-06-29] MEDS: MUPIROCIN TP SCH ×2 (15:05→16:44)
[2017-06-29] MEDS: MIRTAZAPINE 15 MG TABLET (FP) PO SCH (22:12)
[2017-06-29] MEDS: THIAMINE HCL 100 MG TABLET (FP) PO SCH (22:12)
[2017-06-30] MEDS: diazePAM 5 MG TABLET PO PRN ×5 (05:41→23:22)
[2017-06-30] MEDS: MUPIROCIN 2% TOPICAL OINTMENT 22 GM TUBE TP SCH ×3 (07:35→22:09)
[2017-06-30] MEDS ORDERED: METHADONE HCL 5 MG TABLET (FOR DETOX USE ONLY) PO ONE (10:00)
--- NOTE | 2017-06-30 10:31 | PN ---
BHS COWS - Scale Resting Pulse: 2= [place] 101-120 Sweatin=Flushed/Facial Moisture Restless Observation: 0= Sits Still Pupil Size: 0= Normal to Room Light Bone or Joint Aches: 1= Mild Discomfort Runny Nose/ Eye Tearin= Nasal Congestion GI Upset > 30mins: 0= None Tremor Observation of Outstretched Hands: 2= Slight Tremor Visible Yawning Observation: 0= None Anxiety or Irritability: 2=Irritable/Anxious Goose Flesh Skin: 0=Smooth Skin COWS Score: 10 BHS Progress Note (SOAP) Subjective: i feel so much better. I only did two bags on day before coming here. I was clean for four days prior to that. I am feeling so much better i want to leavae tomorrow. little sweats Objective: 06/30/17 10:30 Vital Signs Temperature 97.5 F L 06/30/17 09:34 Pulse Rate 103 H 06/30/17 09:34 Respiratory Rate 18 06/30/17 09:34 Blood Pressure 134/79 06/30/17 09:34 O2 Sat by Pulse Oximetry (%) Laboratory Tests 06/28/17 06/29/17 06/29/17 23:36 07:00 07:00 WBC 5.8 D RBC 4.05 Hgb 10.7 Hct 33.2 MCV 81.9 MCH 26.4 MCHC 32.2 RDW 18.4 H D Plt Count 292 D MPV 8.3 Sodium 139 Potassium 3.7 Chloride 106 Carbon Dioxide 26 Anion Gap 7 L BUN 22 H D Creatinine 0.7 D Creat Clearance w eGFR > 60 Random Glucose 90 Calcium 8.0 L Total Bilirubin 0.3 D AST 10 L D ALT 15 D Alkaline Phosphatase 75 Total Protein 6.1 L Albumin 3.1 L Urine Color Yellow Urine Appearance Slcloudy Urine pH 6.0 Ur Specific [place] 1.019 Urine Protein Negative Urine Glucose (UA) Negative Urine Ketones Negative Urine Blood Negative Urine Nitrite Negative Urine Bilirubin Negative Urine Urobilinogen Negative Ur Leukocyte Esterase Negative RPR Titer HIV 1&2 Antibody Screen HIV P24 Antigen 06/29/17 06/29/17 07:00 08:00 WBC RBC Hgb Hct MCV MCH MCHC RDW Plt Count MPV Sodium Potassium Chloride Carbon Dioxide Anion Gap BUN Creatinine Creat Clearance w eGFR Random Glucose Calcium Total Bilirubin AST ALT Alkaline Phosphatase Total Protein Albumin Urine Color Urine Appearance Urine pH Ur Specific [place] Urine Protein Urine Glucose (UA) Urine Ketones Urine Blood Urine Nitrite Urine Bilirubin Urine Urobilinogen Ur Leukocyte Esterase RPR Titer Nonreactive HIV 1&2 Antibody Screen Negative HIV P24 Antigen Negative aaox3 ambulating no acute distress Assessment: 06/30/17 10:31 mild withdrawal sx Plan: continue detox increase fluids d/c in in am after last methadone
[2017-06-30] MEDS: PRENATAL VITAMINS W/ FOLIC ACID TABLET (FP) PO SCH (10:33)
[2017-06-30] MEDS: NICOTINE 21 MG/24 HOURS TOPICAL PATCH TD SCH (10:33)
[2017-06-30] MEDS: MIRTAZAPINE 15 MG TABLET (FP) PO SCH (22:09)
[2017-06-30] MEDS: THIAMINE HCL 100 MG TABLET (FP) PO SCH (22:09)
[2017-06-30 22:22] VITALS: TEMP 97.3
[2017-07-01 06:25] VITALS: BP 137/78; PULSE 78
[2017-07-01] MEDS: MUPIROCIN 2% TOPICAL OINTMENT 22 GM TUBE TP SCH (07:45)
[2017-07-01] MEDS: PRENATAL VITAMINS W/ FOLIC ACID TABLET (FP) PO SCH (09:09)
--- NOTE | 2017-07-01 09:09 | DS ---
[facility] Detox Discharge Summary Admission Date: 06/28/17 Discharge Date: 07/01/17 - History Present History: Alcohol Dependence, Opioid Dependence, Sedative Dependence, MMTP - Physical Exam Results Vital Signs: Vital Signs Temperature 97.3 F L 07/01/17 06:00 Pulse Rate 78 07/01/17 06:00 Respiratory Rate 18 07/01/17 06:00 Blood Pressure 137/78 07/01/17 06:00 O2 Sat by Pulse Oximetry (%) - Treatment Hospital Course: Detox Protocol Followed, Detoxed Safely, Responded well, Discharged Condition Good, Rehab Referral Accepted - Medication Discharge Medications: Ambulatory Orders Escitalopram Oxalate [Lexapro -] 5 mg PO HS 06/22/17 Mupirocin Ointment [Bactroban 2% Ointment -] 1 applic TP TID 06/28/17 Mirtazapine [Remeron -] 15 mg PO HS #30 tablet 06/29/17 - Diagnosis (1) Nicotine dependence Current Visit: Yes Status: Chronic Qualifiers: Nicotine product type: cigarettes Substance use status: uncomplicated Qualified Code(s): F17.210 - Nicotine dependence, cigarettes, uncomplicated (2) Opioid dependence with withdrawal Current Visit: Yes Status: Chronic (3) Weight loss Current Visit: Yes Status: Acute (4) Acneiform rash Current Visit: Yes Status: Chronic (5) COPD (chronic obstructive pulmonary disease) Current Visit: Yes Status: Chronic Qualifiers: COPD type: emphysema Emphysema type: panlobular Qualified Code(s): J43.1 - Panlobular emphysema (6) H/O breast augmentation Current Visit: No Status: Acute (7) Insomnia Current Visit: No Status: Acute (8) UTI (urinary tract infection) Current Visit: No Status: Acute Qualifiers: Urinary tract infection type: acute cystitis (9) Alcohol dependence Current Visit: No Status: Chronic Qualifiers: Substance use status: uncomplicated Qualified Code(s): F10.20 - Alcohol dependence, uncomplicated (10) Anxiety Disorder NOS Current Visit: No Status: Chronic (11) Nicotine dependence Current Visit: Yes Status: Chronic Qualifiers: Nicotine product type: cigarettes Substance use status: uncomplicated Qualified Code(s): F17.210 - Nicotine dependence, cigarettes, uncomplicated (12) Sedative dependence Current Visit: No Status: Chronic - AMA Did Patient Leave Against Medical Advice: No
[2017-07-01] MEDS: diazePAM 5 MG TABLET PO PRN (09:12)
[2017-07-01] MEDS ORDERED: METHADONE HCL 5 MG TABLET (FOR DETOX USE ONLY) PO ONE (10:00)
[2017-07-02] MEDS ORDERED: METHADONE HCL 10 MG TABLET (FOR DETOX USE ONLY) PO ONE (10:00)
== END 2017-07-01 09:16 | disposition home or self-care (01) | DRG 773 ==
LOC: YASAS 12:57 → Y6N 17:55
PROVIDERS: ADMIT Internal Medicine; ATTEND Internal Medicine
PROC: HZ2ZZZZ Detoxification Services for Substance Abuse Treatment (ICD-10-PCS; principal; 2017-06-28)
DX: F11.23 Opioid dependence with withdrawal (principal); F10.230 Alcohol dependence with withdrawal, uncomplicated; F13.230 Sedative, hypnotic or anxiolytic dependence with withdrawal, uncomplicated; F17.210 Nicotine dependence, cigarettes, uncomplicated; F41.9 Anxiety disorder, unspecified; F19.24 Other psychoactive substance dependence with psychoactive substance-induced mood disorder; L27.0 Generalized skin eruption due to drugs and medicaments taken internally; J43.1 Panlobular emphysema; G47.00 Insomnia, unspecified; N30.00 Acute cystitis without hematuria; R00.0 Tachycardia, unspecified; Z86.69 Personal history of other diseases of the nervous system and sense organs; Z98.82 Breast implant status; Z87.898 Personal history of other specified conditions
CPT/HCPCS: 36415; 80053; 81003; 85027; 86593; 87389; 93005; 93010

== ENCOUNTER 2017-07-25 19:12 | Inpatient (IN) | payer OTHER ==
--- NOTE | 2017-07-25 21:44 | HP ---
COWS - Scale Resting Pulse: 2= [place] 101-120 Sweatin=Flushed/Facial Moisture Restless Observation: 1= Difficult to Sit Still Pupil Size: 1= Pupils >than Normal Bone or Joint Aches: 4=Acute Joint/Muscle Pain Runny Nose/ Eye Tearin= Runny Nose/Eyes GI Upset > 30mins: 3= Vomiting/Diarrhea (vomiting x 10, no diarrhea) Tremor Observation: 2= Slight Tremor Visible Yawning Observation: 0= None Anxiety or Irritability: 2=Irritable/Anxious Goose Flesh Skin: 0=Smooth Skin COWS Score: 19 Admission ROS [facility] Chief Complaint: Opioid withdrawal symptoms Allergies/Adverse Reactions: Allergies Allergy/AdvReac Type Severity Reaction Status Date / Time No Known Allergies Allergy Verified 07/25/17 21:55 History of Present Illness: 41 years old female with a 6 years history of heroin dependence is seeking admission to detox. Patient has been to previous detox, last 07/01/2017 at [facility]. She reports 5 months of sobriety and medical history of seizures, COPD, anxiety and depression. Denies suicidal ideation at this time. Patient states, " My goal this year is to be drug free." Patient's urine toxicology was positive for cocaine but she denies cocaine dependence, stating that it was probably from the heroin. Exam Limitations: No Limitations - Ebola screening Have you traveled outside of the country in the last 21 days: No Have you had contact with anyone from an Ebola affected area: No Have you been sick,other than usual withdrawal symptoms: No Do you have a fever: No - Review of Systems Constitutional: Chills, Loss of Appetite, Malaise, Night Sweats, Changes in sleep, Weakness EENT: reports: Nose Congestion, Sinus Pressure Respiratory: reports: No Symptoms reported Cardiac: reports: No Symptoms Reported GI: reports: Poor Appetite, Poor Fluid Intake, Vomiting (x 10) : reports: No Symptoms Reported Musculoskeletal: reports: Back Pain, Muscle Pain, Muscle Weakness Integumentary: reports: Dryness, Flushing Neuro: reports: Tingling, Tremors Endocrine: reports: No Symptoms Reported Hematology: reports: No Symptoms Reported Psychiatric: reports: Orientated x3, Agitated, Anxious, Depressed Other Systems: Reviewed and Negative Patient History - Patient Medical History Hx Anemia: No Hx Asthma: No Hx Chronic Obstructive Pulmonary Disease (COPD): Yes (Emphysema) Hx Cancer: No Hx Cardiac Disorders: No Hx Congestive Heart Failure: No Hx Hypertension: No Hx Hypercholesterolemia: No Hx Pacemaker: No HX Cerebrovascular Accident: No Hx Seizures: Yes Hx Dementia: No Hx Diabetes: No Hx Gastrointestinal Disorders: No Hx Liver Disease: No Hx Genitourinary Disorders: No Hx Sexually Transmitted Disorders: No Hx Renal Disease (ESRD): No Hx Thyroid Disease: No Hx Human Immunodeficiency Virus (HIV): No (Negative December 2016) Hx Hepatitis C: No (Negative March 2017) Hx Depression: Yes Hx Suicide Attempt: No (Denies suicidal ideation) Hx Bipolar Disorder: No Hx Schizophrenia: No - Patient Surgical History Past Surgical History: Yes Hx Neurologic Surgery: No Hx Cataract Extraction: No Hx Cardiac Surgery: No Hx Lung Surgery: No Hx Breast Surgery: Yes (Breast augmentation) Hx Breast Biopsy: No Hx Abdominal Surgery: No Hx Appendectomy: No Hx Cholecystectomy: No Hx Genitourinary Surgery: No Hx Section: No Hx Orthopedic Surgery: Yes (Right shoulder and upper arms in 2013) Hx Hysterectomy: No Anesthesia Reaction: No - PPD History Previous Implant?: Yes Documented Results: Negative w/proof Implanted On Prior R Admission?: Yes Date: 11/06/16 Results: 0 mm PPD to be Administered?: No - Reproductive History Patient is a Female of Child Bearing Age (11 -55 yrs old): Yes Last Menstrual Period: 07/14/18 Patient : Yes - Smoking Cessation Smoking history: Current every day smoker Have you smoked in the past 12 months: Yes Aproximately how many cigarettes per day: 20 Cigars Per Day: 0 Hx Chewing Tobacco Use: No Initiated information on smoking cessation: Yes 'Breaking Loose' booklet given: 07/25/17 - Substance & Tx. History Hx Alcohol Use: No Hx Substance Use: Yes Substance Use Type: Cocaine, Heroin Hx Substance Use Treatment: Yes - Substances Abused Heroin Route: Injection Frequency: Daily Amount used: 6 bags Age of first use: 36 Date of Last Use: 07/25/17 Family Disease History - Family Disease History Family Disease History: Heart Disease: Grandparent (Grandfather- ), Other: Brother ( overdose) Admission Physical Exam BHS - Physical General Appearance: Yes: Moderate Distress, Tremorous, Irritable, Sweating, Anxious HEENTM: Yes: Nasal Congestion Respiratory: Yes: Lungs Clear, Normal Breath Sounds, No Respiratory Distress Neck: Yes: Supple Breast: Yes: Breast Exam Deferred Cardiology: Yes: Tachycardia Abdominal: Yes: Normal Bowel Sounds, Soft Genitourinary: Yes: Within Normal Limits Back: Yes: Within Normal Limits Musculoskeletal: Yes: Back pain, Muscle Pain, Muscle weakness Extremities: Yes: Tremors Neurological: Yes: Alert, Normal Mood/Affect, Normal Response Integumentary: Yes: Dry, Track Brito (both arms) Lymphatic: Yes: Within Normal Limits - Diagnostic (1) Sedative, hypnotic or anxiolytic dependence with withdrawal, uncomplicated Current Visit: Yes Status: Chronic (2) Anxiety Disorder NOS Current Visit: Yes Status: Chronic (3) COPD (chronic obstructive pulmonary disease) Current Visit: Yes Status: Chronic Qualifiers: COPD type: emphysema Emphysema type: panlobular Qualified Code(s): J43.1 - Panlobular emphysema (4) Nicotine dependence Current Visit: Yes Status: Chronic Qualifiers: Nicotine product type: cigarettes Substance use status: uncomplicated Qualified Code(s): F17.210 - Nicotine dependence, cigarettes, uncomplicated (5) Opioid dependence with withdrawal Current Visit: Yes Status: Chronic Cleared for Admission S - Detox or Rehab [facility] Level of Care: Medically Managed Detox Regimen/Protocol: Methadone [facility] Breath Alcohol Content Breath Alcohol Content: 0
[2017-07-25] MEDS ORDERED: guaiFENesin/D-METHORPHAN HB 10 ML UNIT-DOSE CUPS PO PRN (22:10)
[2017-07-25] MEDS ORDERED: LOPERAMIDE HCL 2 MG CAPSULE PO PRN (22:10)
[2017-07-25] MEDS ORDERED: MAGNESIUM HYDROX 2400MG/30ML ORAL SUSPENSION 30 ML CUP PO PRN (22:10)
[2017-07-25] MEDS ORDERED: MAGNESIUM CITRATE 300 ML BOTTLE PO PRN (22:10)
[2017-07-25] MEDS ORDERED: MENTHOL/PHENOL 1 EACH UD MM PRN (22:10)
[2017-07-25] MEDS ORDERED: IBUPROFEN 400 MG TABLET (FP) PO PRN (22:10)
[2017-07-25] MEDS ORDERED: ACETAMINOPHEN 325 MG TABLET (FP) PO PRN (22:10)
[2017-07-25] MEDS ORDERED: P-EPHED 60MG/TRIPROLIDI 2.5MG TABLET PO PRN (22:10)
[2017-07-25] MEDS ORDERED: METHADONE HCL 10 MG TABLET (FOR DETOX USE ONLY) PO ONE ×2 (22:10→23:00)
[2017-07-25] MEDS ORDERED: NICOTINE POLACRILEX 2 MG GUM BC PRN (22:10)
[2017-07-25] MEDS ORDERED: MAG HYDROX/AL HYDROX/SIMETH 30 ML UNIT-DOSE CUP PO PRN (22:10)
[2017-07-25 22:19] VITALS: BMI 22.4
[2017-07-25] MEDS: diazePAM 5 MG TABLET PO PRN (23:31)
[2017-07-26] MEDS ORDERED: METHADONE HCL 10 MG TABLET (FOR DETOX USE ONLY) PO ONE (10:00)
[2017-07-26 10:07] LABS: ALBUMIN 3.4 g/dl (3.4-5.0); ANION GAP 10 (8-16); BLOOD UREA NITROGEN 19 mg/dL (7-18); CALCIUM 8.7 mg/dL (8.5-10.1); CHLORIDE 106 mmol/L (98-107); CO2 25 mmol/L (21-32); CREATININE 0.6 mg/dL (0.55-1.02); GLUCOSE,RANDOM 105 mg/dL (74-106); HEMATOCRIT 33.1 % (32.4-45.2); HEMOGLOBIN 10.6 GM/dL (10.7-15.3); MCH 26.1 pg (25.7-33.7); MCHC 31.9 g/dl (32.0-36.0); MEAN CELL VOLUME 81.8 fl (80-96); MEAN PLT VOLUME 7.9 fl (7.5-11.1); PLATELET COUNT 380 K/MM3 (134-434); RBC 4.05 M/mm3 (3.60-5.2); RDW 18.6 % (11.6-15.6); SGOT/AST 14 U/L (15-37); SGPT/ALT 24 U/L (12-78); SODIUM 141 mmol/L (136-145); WHITE BLOOD COUNT 6.2 K/mm3 (4.0-10.0)
[2017-07-26 10:09] LABS: ALK PHOS 73 U/L (45-117); BILIRUBIN,TOTAL 0.6 mg/dL (0.2-1.0)
[2017-07-26] MEDS: PRENATAL VITAMINS W/ FOLIC ACID TABLET (FP) PO SCH (10:27)
[2017-07-26] MEDS: NICOTINE 14 MG/24 HOURS TOPICAL PATCH TD SCH (10:27)
[2017-07-26] MEDS: diazePAM 5 MG TABLET PO PRN ×3 (10:30→20:07)
--- NOTE | 2017-07-26 10:55 | EKG ---
Test Reason : Blood Pressure : / mmHG Vent. Rate : 087 BPM Atrial Rate : 087 BPM P-R Int : 138 ms QRS Dur : 082 ms QT Int : 410 ms P-R-T Axes : 068 056 050 degrees QTc Int : 493 ms NORMAL SINUS RHYTHM WITH SINUS ARRHYTHMIA PROLONGED QT ABNORMAL ECG WHEN COMPARED WITH ECG OF 28-JUN-2017 20:35, NONSPECIFIC T WAVE ABNORMALITY NO LONGER EVIDENT IN ANTERIOR LEADS Confirmed by MD Avinash, Bobby ([id number]) on 07/26/2017 10:54:58 AM Referred By: Gavino Nelson Confirmed By:Bobby Da Silva MD
--- NOTE | 2017-07-26 11:28 | PN ---
BHS COWS - Scale Resting Pulse: 1= [place] 81-100 Sweatin=Flushed/Facial Moisture Restless Observation: 1= Difficult to Sit Still Pupil Size: 0= Normal to Room Light Bone or Joint Aches: 1= Mild Discomfort Runny Nose/ Eye Tearin= Runny Nose/Eyes GI Upset > 30mins: 2= Nausea/Diarrhea Tremor Observation of Outstretched Hands: 2= Slight Tremor Visible Yawning Observation: 2= >3x During Session Anxiety or Irritability: 2=Irritable/Anxious Goose Flesh Skin: 0=Smooth Skin COWS Score: 15 BHS Progress Note (SOAP) Subjective: agitation anxiety sweats body aches interrupted sleep Objective: 07/26/17 11:27 Vital Signs Temperature 97 F L 07/26/17 10:36 Pulse Rate 110 H 07/26/17 10:36 Respiratory Rate 18 07/26/17 10:36 Blood Pressure 111/63 07/26/17 10:36 O2 Sat by Pulse Oximetry (%) Laboratory Tests 07/26/17 07/26/17 07:00 07:00 WBC 6.2 RBC 4.05 Hgb 10.6 L Hct 33.1 MCV 81.8 MCH 26.1 MCHC 31.9 L RDW 18.6 H Plt Count 380 D MPV 7.9 Sodium 141 Potassium 4.0 Chloride 106 Carbon Dioxide 25 Anion Gap 10 BUN 19 H Creatinine 0.6 Creat Clearance w eGFR > 60 Random Glucose 105 Calcium 8.7 Total Bilirubin 0.6 D AST 14 L D ALT 24 D Alkaline Phosphatase 73 Total Protein 7.0 Albumin 3.4 aaox3 ambulating no acute distress u/a pending Assessment: 07/26/17 11:29 withdrawal sx Plan: continue detox increase fluids labs pending
[2017-07-26 15:15] LABS: URINE APPEARANCE TURBID; URINE BILIRUBIN NEGATIVE (NEGATIVE); URINE BLOOD NEGATIVE (NEGATIVE); URINE COLOR YELLOW; URINE GLUCOSE (UA) NEGATIVE (NEGATIVE); URINE KETONE NEGATIVE (NEGATIVE); URINE LEUK ESTERASE NEGATIVE (NEGATIVE); URINE NITRITE NEGATIVE (NEGATIVE); URINE PROTEIN NEGATIVE (NEGATIVE)
--- NOTE | 2017-07-26 17:07 | CONSULT ---
[facility] Psychiatric Consult - Data Date of interview: 07/26/17 Admission source: [facility] Identifying data: Pt. is a 41 year old female, , without kids, and currently unemployed. This is one of multiple admissions to [facility]. Pt. admitted to for heroin dependence. Substance Abuse History: - Smoking Cessation. Smoking history: Current every day smoker. Have you smoked in the past 12 months: Yes. Aproximately how many cigarettes per day: 20. Cigars Per Day: 0. Hx Chewing Tobacco Use: No. Initiated information on smoking cessation: Yes. 'Breaking Loose' booklet given : 07/25/17. - Substance & Tx. History. Hx Alcohol Use: No. Hx Substance Use: Yes. Substance Use Type: Cocaine, Heroin. Hx Substance Use Treatment: Yes. - Substances Abused. Heroin. Route: Injection. Frequency: Daily. Amount used: 6 bags. Age of first use: 36. Date of Last Use: 07/25/17 Medical History: Emphysema Psychiatric History: Pt. denies h/o psychiatric hospitalization and suicide attempt. Reports OPC by Dr. Cornejo in [place], [place]. States she is currently prescribed mirtazapine 30mg qhs and pristiq 50mg ER po daily. Reports a diagnosis of MDD, anxiety, and ADD. Physical/Sexual Abuse/Trauma History: Denies. Mental Status Exam - Mental Status Exam Alert and Oriented to: Time, Place, Person Cognitive Function: Good Patient Appearance: Well Groomed Mood: Hopeful, Happy Affect: Mood Congruent Patient Behavior: Appropriate, Cooperative Speech Pattern: Clear, Appropriate Voice Loudness: Normal Thought Process: Intact Thought Disorder: Not Present Hallucinations: Denies Suicidal Ideation: Denies Homicidal Ideation: Denies Insight/Judgement: Poor Sleep: Poorly Appetite: Fair Muscle strength/Tone: Normal Gait/Station: Normal Psychiatric Findings - Problem List ([place] 1, 2,3) (1) Opioid dependence with withdrawal Current Visit: Yes Status: Acute (2) MDD (major depressive disorder) Current Visit: Yes Status: Chronic Comment: Self reports. (3) Anxiety Disorder NOS Current Visit: Yes Status: Chronic Comment: Self reports. (4) Nicotine dependence Current Visit: Yes Status: Chronic Qualifiers: Nicotine product type: cigarettes Substance use status: uncomplicated Qualified Code(s): F17.210 - Nicotine dependence, cigarettes, uncomplicated - Initial Treatment Plan Initial Treatment Plan: Psychoeducation provided. Detoxification in progress. Mirtazapine 30mg qhs ordered. Pharmacy claims reviewed. Verbal consent given. Benefits and side effects discussed. Will continue to monitor.
[2017-07-26] MEDS: THIAMINE HCL 100 MG TABLET (FP) PO SCH (22:11)
[2017-07-26] MEDS: MIRTAZAPINE 30 MG TABLET (FP) PO SCH (22:11)
[2017-07-27] MEDS ORDERED: METHADONE HCL 5 MG TABLET (FOR DETOX USE ONLY) PO ONE (10:00)
[2017-07-27] MEDS: PRENATAL VITAMINS W/ FOLIC ACID TABLET (FP) PO SCH (10:35)
[2017-07-27] MEDS: NICOTINE 14 MG/24 HOURS TOPICAL PATCH TD SCH (10:36)
--- NOTE | 2017-07-27 10:40 | EKG ---
Test Reason : Blood Pressure : / mmHG Vent. Rate : 082 BPM Atrial Rate : 082 BPM P-R Int : 138 ms QRS Dur : 082 ms QT Int : 430 ms P-R-T Axes : 059 067 062 degrees QTc Int : 502 ms NORMAL SINUS RHYTHM PROLONGED QT ABNORMAL ECG WHEN COMPARED WITH ECG OF 25-JUL-2017 23:38, NO SIGNIFICANT CHANGE WAS FOUND Confirmed by ARELIS LUNDBERG, CHAGO ([id number]) on 07/27/2017 10:40:06 AM Referred By: Gavino Nelson Confirmed By:CHAGO INFANTE MD
[2017-07-27] MEDS: diazePAM 5 MG TABLET PO PRN ×4 (10:47→23:10)
--- NOTE | 2017-07-27 13:17 | PN ---
S CIWA - CIWA Score Nausea/Vomitin Muscle Tremors: 3 Anxiety: 4-Mod. Anxious/Guarded Agitation: 1-Slight > Activity Paroxysmal Sweats: 2 Orientation: 0-Oriented Tacttile Disturbances: 0-None Auditory Disturbances: 1-Very Mild Visual Disturbances: 1-Very Mild Sensitivity Headache: 0-None Present CIWA-Ar Total Score: 14 S Progress Note (SOAP) Subjective: Interrupted sleep, anxious, chills, night sweats Objective: 07/27/17 13:15 Last Vital Signs Temp Pulse Resp BP Pulse Ox 97.9 F 89 18 127/80 07/27/17 10:00 07/27/17 10:00 07/27/17 10:00 07/27/17 10:00 Laboratory Last Values WBC 6.2 K/mm3 (4.0-10.0) 07/26/17 07:00 RBC 4.05 M/mm3 (3.60-5.2) 07/26/17 07:00 Hgb 10.6 GM/dL (10.7-15.3) L 07/26/17 07:00 Hct 33.1 % (32.4-45.2) 07/26/17 07:00 MCV 81.8 fl (80-96) 07/26/17 07:00 MCH 26.1 pg (25.7-33.7) 07/26/17 07:00 MCHC 31.9 g/dl (32.0-36.0) L 07/26/17 07:00 RDW 18.6 % (11.6-15.6) H 07/26/17 07:00 Plt Count 380 K/MM3 (134-434) D 07/26/17 07:00 MPV 7.9 fl (7.5-11.1) 07/26/17 07:00 Sodium 141 mmol/L (136-145) 07/26/17 07:00 Potassium 4.0 mmol/L (3.5-5.1) 07/26/17 07:00 Chloride 106 mmol/L (98-107) 07/26/17 07:00 Carbon Dioxide 25 mmol/L (21-32) 07/26/17 07:00 Anion Gap 10 (8-16) 07/26/17 07:00 BUN 19 mg/dL (7-18) H 07/26/17 07:00 Creatinine 0.6 mg/dL (0.55-1.02) 07/26/17 07:00 Creat Clearance w eGFR > 60 (>60) 07/26/17 07:00 Random Glucose 105 mg/dL (74-106) 07/26/17 07:00 Calcium 8.7 mg/dL (8.5-10.1) 07/26/17 07:00 Total Bilirubin 0.6 mg/dL (0.2-1.0) D 07/26/17 07:00 AST 14 U/L (15-37) L D 07/26/17 07:00 ALT 24 U/L (12-78) D 07/26/17 07:00 Alkaline Phosphatase 73 U/L (45-117) 07/26/17 07:00 Total Protein 7.0 g/dl (6.4-8.2) 07/26/17 07:00 Albumin 3.4 g/dl (3.4-5.0) 07/26/17 07:00 Urine Color Yellow 07/26/17 12:30 Urine Appearance Turbid 07/26/17 12:30 Urine pH 6.0 (5.0-8.0) 07/26/17 12:30 Ur Specific [place] 1.028 (1.001-1.035) 07/26/17 12:30 Urine Protein Negative (NEGATIVE) 07/26/17 12:30 Urine Glucose (UA) Negative (NEGATIVE) 07/26/17 12:30 Urine Ketones Negative (NEGATIVE) 07/26/17 12:30 Urine Blood Negative (NEGATIVE) 07/26/17 12:30 Urine Nitrite Negative (NEGATIVE) 07/26/17 12:30 Urine Bilirubin Negative (NEGATIVE) 07/26/17 12:30 Urine Urobilinogen 2.0 mg/dL (0.2-1.0) H 07/26/17 12:30 Ur Leukocyte Esterase Negative (NEGATIVE) 07/26/17 12:30 RPR Titer Nonreactive (NONREACTIVE) 07/26/17 07:00 Labs noted Assessment: 07/27/17 13:16 Withdrawal symptoms Plan: Continue detox
[2017-07-27] MEDS: MIRTAZAPINE 30 MG TABLET (FP) PO SCH (22:04)
[2017-07-27] MEDS: THIAMINE HCL 100 MG TABLET (FP) PO SCH (22:04)
[2017-07-28] MEDS ORDERED: METHADONE HCL 5 MG TABLET (FOR DETOX USE ONLY) PO ONE (10:00)
[2017-07-28] MEDS: PRENATAL VITAMINS W/ FOLIC ACID TABLET (FP) PO SCH (10:43)
[2017-07-28] MEDS: diazePAM 5 MG TABLET PO PRN ×3 (10:43→22:06)
[2017-07-28] MEDS: NICOTINE 14 MG/24 HOURS TOPICAL PATCH TD SCH (10:44)
[2017-07-28 20:14] LABS: URINE APPEARANCE CLEAR; URINE BILIRUBIN NEGATIVE (NEGATIVE); URINE BLOOD NEGATIVE (NEGATIVE); URINE COLOR LTYELLOW; URINE GLUCOSE (UA) NEGATIVE (NEGATIVE); URINE KETONE NEGATIVE (NEGATIVE); URINE LEUK ESTERASE NEGATIVE (NEGATIVE); URINE NITRITE NEGATIVE (NEGATIVE); URINE PROTEIN NEGATIVE (NEGATIVE); URINE UROBILINOGEN NEGATIVE mg/dL (0.2-1.0)
[2017-07-28] MEDS: THIAMINE HCL 100 MG TABLET (FP) PO SCH (22:10)
[2017-07-28] MEDS: MIRTAZAPINE 30 MG TABLET (FP) PO SCH (22:10)
[2017-07-29] MEDS ORDERED: METHADONE HCL 10 MG TABLET (FOR DETOX USE ONLY) PO ONE ×2 (06:00→10:00)
[2017-07-29 07:39] VITALS: BP 137/73; PULSE 81; TEMP 97.5
--- NOTE | 2017-07-29 08:34 | DS ---
[facility] Detox Discharge Summary Admission Date: 07/25/17 Discharge Date: 07/29/17 - History Present History: Opioid Dependence, Sedative Dependence - Physical Exam Results Vital Signs: Vital Signs Temperature 97.5 F L 07/29/17 07:38 Pulse Rate 81 07/29/17 07:38 Respiratory Rate 18 07/29/17 07:38 Blood Pressure 137/73 07/29/17 07:38 O2 Sat by Pulse Oximetry (%) - Treatment Hospital Course: Detox Protocol Followed, Detoxed Safely, Responded well, Discharged Condition Good, Rehab Referral Accepted - Medication Discharge Medications: Ambulatory Orders Escitalopram Oxalate [Lexapro -] 5 mg PO HS 06/22/17 Mupirocin Ointment [Bactroban 2% Ointment -] 1 applic TP TID 06/28/17 Mirtazapine [Remeron -] 15 mg PO HS #30 tablet 06/29/17 - Diagnosis (1) Anxiety Disorder NOS Status: Chronic (2) COPD (chronic obstructive pulmonary disease) Status: Chronic Qualifiers: COPD type: emphysema Emphysema type: panlobular Qualified Code(s): J43.1 - Panlobular emphysema (3) Nicotine dependence Status: Chronic Qualifiers: Nicotine product type: cigarettes Substance use status: uncomplicated Qualified Code(s): F17.210 - Nicotine dependence, cigarettes, uncomplicated (4) Opioid dependence with withdrawal Status: Acute (5) Sedative, hypnotic or anxiolytic dependence with withdrawal, uncomplicated Status: Chronic (6) Drug-induced mood disorder Status: Acute (7) H/O breast augmentation Status: Acute (8) Insomnia Status: Acute (9) Weight loss Status: Acute (10) Nicotine dependence Status: Chronic Qualifiers: Nicotine product type: cigarettes Substance use status: uncomplicated Qualified Code(s): F17.210 - Nicotine dependence, cigarettes, uncomplicated - AMA Did Patient Leave Against Medical Advice: No
[2017-07-30] MEDS ORDERED: METHADONE HCL 5 MG TABLET (FOR DETOX USE ONLY) PO ONE (06:00)
== END 2017-07-29 07:15 | disposition home or self-care (01) | DRG 773 ==
LOC: YASAS 19:12 → Y6N 21:58
PROVIDERS: ADMIT Internal Medicine; ATTEND Internal Medicine
PROC: HZ2ZZZZ Detoxification Services for Substance Abuse Treatment (ICD-10-PCS; principal; 2017-07-25)
DX: F11.23 Opioid dependence with withdrawal (principal); F13.230 Sedative, hypnotic or anxiolytic dependence with withdrawal, uncomplicated; F17.210 Nicotine dependence, cigarettes, uncomplicated; F33.9 Major depressive disorder, recurrent, unspecified; F19.24 Other psychoactive substance dependence with psychoactive substance-induced mood disorder; F42.9 Obsessive-compulsive disorder, unspecified; G47.00 Insomnia, unspecified; J43.1 Panlobular emphysema; R63.4 Abnormal weight loss; Z68.22 Body mass index [BMI] 22.0-22.9, adult; Z98.82 Breast implant status
CPT/HCPCS: 36415; 80053; 81003; 85027; 86593; 93005; 93010

== ENCOUNTER 2017-08-05 19:28 | Inpatient (IN) | payer OTHER ==
[2017-08-05 20:43] VITALS: BMI 22.3
--- NOTE | 2017-08-05 21:45 | HP ---
COWS - Scale Resting Pulse: 2= [place] 101-120 Sweatin= Chills/Flushing Restless Observation: 1= Difficult to Sit Still Pupil Size: 1= Pupils >than Normal Bone or Joint Aches: 1= Mild Discomfort Runny Nose/ Eye Tearin= Runny Nose/Eyes GI Upset > 30mins: 0= None Tremor Observation: 1= Tremor [place], Not Seen Yawning Observation: 4= Several Times/Minute Anxiety or Irritability: 2=Irritable/Anxious Goose Flesh Skin: 0=Smooth Skin COWS Score: 15 Admission ROS S - HPI Chief Complaint: withdrawal symptoms Allergies/Adverse Reactions: Allergies Allergy/AdvReac Type Severity Reaction Status Date / Time No Known Allergies Allergy Verified 08/05/17 21:44 History of Present Illness: 41 yo female with and extensive history of heroin dependence and hx of anxiety and COPD. Reports she is "court mandated to attend detox and rehab." Patient provided no proof regarding mandate. Last detox at [facility] 07/25/17 -07/29/17. Longest period of sobriety 5 months. Exam Limitations: No Limitations - Ebola screening Have you been sick,other than usual withdrawal symptoms: No - Review of Systems Constitutional: Chills, Changes in sleep EENT: reports: No Symptoms Reported Respiratory: reports: SOB with Exertion (walking 1/2 a block) Cardiac: reports: No Symptoms Reported GI: reports: Poor Fluid Intake : reports: No Symptoms Reported Musculoskeletal: reports: Back Pain Integumentary: reports: No Symptoms Reported Neuro: reports: Tremors Endocrine: reports: No Symptoms Reported Hematology: reports: No Symptoms Reported Psychiatric: reports: Depressed, other (AOxPP) Other Systems: Reviewed and Negative Patient History - Patient Medical History Hx Anemia: No Hx Asthma: No Hx Chronic Obstructive Pulmonary Disease (COPD): Yes (Emphysema) Hx Cancer: No Hx Cardiac Disorders: No Hx Congestive Heart Failure: No Hx Hypertension: No Hx Hypercholesterolemia: No Hx Pacemaker: No HX Cerebrovascular Accident: No Hx Seizures: Yes Hx Dementia: No Hx Diabetes: No Hx Gastrointestinal Disorders: No Hx Liver Disease: No Hx Genitourinary Disorders: No Hx Sexually Transmitted Disorders: No Hx Renal Disease (ESRD): No Hx Thyroid Disease: No Hx Human Immunodeficiency Virus (HIV): No (Negative December 2016) Hx Hepatitis C: No (Negative March 2017) Hx Depression: Yes Hx Suicide Attempt: No (Denies suicidal ideation) Hx Bipolar Disorder: No Hx Schizophrenia: No - Patient Surgical History Past Surgical History: Yes Hx Neurologic Surgery: No Hx Cataract Extraction: No Hx Cardiac Surgery: No Hx Lung Surgery: No Hx Breast Surgery: Yes (Breast augmentation) Hx Breast Biopsy: No Hx Abdominal Surgery: No Hx Appendectomy: No Hx Cholecystectomy: No Hx Genitourinary Surgery: No Hx Section: No Hx Orthopedic Surgery: Yes (Right shoulder and upper arms in 2013) Hx Hysterectomy: No Anesthesia Reaction: No - PPD History Previous Implant?: Yes Date: 11/06/16 Results: 0 mm PPD to be Administered?: No - Reproductive History Patient is a Female of Child Bearing Age (11 -55 yrs old): Yes Last Menstrual Period: 07/14/18 Patient : No - Smoking Cessation Smoking history: Current every day smoker Have you smoked in the past 12 months: Yes Aproximately how many cigarettes per day: 20 Cigars Per Day: 0 Hx Chewing Tobacco Use: No Initiated information on smoking cessation: Yes 'Breaking Loose' booklet given: 08/05/17 - Substance & Tx. History Hx Alcohol Use: Yes Hx Substance Use: Yes Substance Use Type: Heroin Hx Substance Use Treatment: Yes ([facility] 07/25-07/29/17) - Substances Abused Heroin Route: Injection Frequency: 3-6 times per week Amount used: 2 bags Age of first use: 36 Date of Last Use: 08/04/17 Family Disease History - Family Disease History Family Disease History: Heart Disease: Grandparent (Grandfather- ), Other: Brother ( overdose) Admission Physical Exam [facility] - Vital Signs Vital Signs: Vital Signs - 24 hr 08/05/17 20:40 Temperature 98.9 F Pulse Rate 115 H Respiratory 18 Rate Blood Pressure 119/74 - Physical General Appearance: Yes: Appropriately Dressed, Anxious HEENTM: Yes: EOMI, Hearing grossly Normal, Normal ENT Inspection, Normocephalic , Pharynx Normal, Tm's normal Respiratory: Yes: Chest Non-Tender, Lungs Clear, Normal Breath Sounds, No Respiratory Distress, No Accessory Muscle Use Neck: Yes: No masses,lesions,Nodules, Trachea in good position Breast: Yes: Breast Exam Deferred Cardiology: Yes: Regular Rhythm, Regular Rate, S1, S2 Abdominal: Yes: Normal Bowel Sounds, Non Tender, Flat, Soft Genitourinary: Yes: Within Normal Limits (no urinary symptoms reported) Back: Yes: Normal Inspection Musculoskeletal: Yes: Within Normal Limits, full range of Motion, Gait Steady Extremities: Yes: Normal Capillary Refill, Normal Inspection, Normal Range of Motion, Non-Tender Neurological: Yes: appliances sample maker II-XII NML intact, Fully Oriented, Alert, Motor Strength 5/5, Normal Mood/Affect, Normal Response Integumentary: Yes: Normal Color, Dry, Warm Lymphatic: Yes: Within Normal Limits - Addiitonal Findings: Case discussed with Dr. Nelson, patient to be admitted to Detox. - Diagnostic (1) Drug-induced mood disorder Current Visit: No Status: Acute (2) Anxiety Disorder NOS Current Visit: No Status: Chronic Comment: Self reports. (3) COPD (chronic obstructive pulmonary disease) Current Visit: No Status: Chronic Qualifiers: COPD type: emphysema Emphysema type: panlobular Qualified Code(s): J43.1 - Panlobular emphysema (4) MDD (major depressive disorder) Current Visit: No Status: Chronic Comment: Self reports. (5) Nicotine dependence Current Visit: No Status: Chronic Qualifiers: Nicotine product type: cigarettes Substance use status: uncomplicated Qualified Code(s): F17.210 - Nicotine dependence, cigarettes, uncomplicated Cleared for Admission S - Detox or Rehab [facility] Level of Care: Medically Managed Detox Regimen/Protocol: Methadone [facility] Breath Alcohol Content Breath Alcohol Content: 0 Urine Pregancy Test - Result Urine Test Results: Negative- NO Line Present Urine Drug Screen - Results Drug Screen Negative: No Urine Drug Screen Results: MIHAELA-Cocaine, OPI-Opiates, BZO-Benzodiazepines, MTD- Methadone, OXY-Oxycodone
[2017-08-05] MEDS ORDERED: LOPERAMIDE HCL 2 MG CAPSULE PO PRN (22:32)
[2017-08-05] MEDS ORDERED: NICOTINE POLACRILEX 2 MG GUM BC PRN (22:32)
[2017-08-05] MEDS ORDERED: METHADONE HCL 10 MG TABLET (FOR DETOX USE ONLY) PO ONE ×2 (22:32→23:00)
[2017-08-05] MEDS ORDERED: MENTHOL/PHENOL 1 EACH UD MM PRN (22:32)
[2017-08-05] MEDS ORDERED: IBUPROFEN 400 MG TABLET (FP) PO PRN (22:32)
[2017-08-05] MEDS ORDERED: MAGNESIUM HYDROX 2400MG/30ML ORAL SUSPENSION 30 ML CUP PO PRN (22:32)
[2017-08-05] MEDS ORDERED: MAGNESIUM CITRATE 300 ML BOTTLE PO PRN (22:32)
[2017-08-05] MEDS ORDERED: P-EPHED 60MG/TRIPROLIDI 2.5MG TABLET PO PRN (22:32)
[2017-08-05] MEDS ORDERED: guaiFENesin/D-METHORPHAN HB 10 ML UNIT-DOSE CUPS PO PRN (22:32)
[2017-08-05] MEDS ORDERED: ACETAMINOPHEN 325 MG TABLET (FP) PO PRN (22:32)
[2017-08-05] MEDS ORDERED: MAG HYDROX/AL HYDROX/SIMETH 30 ML UNIT-DOSE CUP PO PRN (22:32)
[2017-08-06] MEDS ORDERED: METHADONE HCL 10 MG TABLET (FOR DETOX USE ONLY) PO ONE (10:00)
[2017-08-06 10:12] LABS: HEMATOCRIT 35.7 % (32.4-45.2); HEMOGLOBIN 11.7 GM/dL (10.7-15.3); MCH 26.6 pg (25.7-33.7); MCHC 32.7 g/dl (32.0-36.0); MEAN CELL VOLUME 81.3 fl (80-96); MEAN PLT VOLUME 8.2 fl (7.5-11.1); PLATELET COUNT 291 K/MM3 (134-434); RBC 4.39 M/mm3 (3.60-5.2); RDW 18.4 % (11.6-15.6); WHITE BLOOD COUNT 6.4 K/mm3 (4.0-10.0)
[2017-08-06 10:14] LABS: CHLORIDE 103 mmol/L (98-107); POTASSIUM 4.2 mmol/L (3.5-5.1); SODIUM 138 mmol/L (136-145)
[2017-08-06 10:23] LABS: ALBUMIN 3.5 g/dl (3.4-5.0); ALK PHOS 136 U/L (45-117); ANION GAP 8 (8-16); BILIRUBIN,TOTAL 0.9 mg/dL (0.2-1.0); BLOOD UREA NITROGEN 17 mg/dL (7-18); CALCIUM 8.5 mg/dL (8.5-10.1); CO2 27 mmol/L (21-32); CREATININE 0.6 mg/dL (0.55-1.02); GLUCOSE,RANDOM 100 mg/dL (74-106); SGOT/AST 23 U/L (15-37); SGPT/ALT 49 U/L (12-78); TOT PROT 7.3 g/dl (6.4-8.2)
[2017-08-06 10:48] LABS: URINE APPEARANCE TURBID; URINE BILIRUBIN NEGATIVE (NEGATIVE); URINE BLOOD NEGATIVE (NEGATIVE); URINE COLOR YELLOW; URINE GLUCOSE (UA) NEGATIVE (NEGATIVE); URINE KETONE NEGATIVE (NEGATIVE); URINE LEUK ESTERASE NEGATIVE (NEGATIVE); URINE NITRITE NEGATIVE (NEGATIVE); URINE PROTEIN NEGATIVE (NEGATIVE)
--- NOTE | 2017-08-06 12:23 | EKG ---
Test Reason : Blood Pressure : / mmHG Vent. Rate : 101 BPM Atrial Rate : 101 BPM P-R Int : 156 ms QRS Dur : 084 ms QT Int : 370 ms P-R-T Axes : 076 043 046 degrees QTc Int : 479 ms SINUS TACHYCARDIA OTHERWISE NORMAL ECG Confirmed by MD BRISEIDA, JAIME ([id number]) on 08/06/2017 12:22:45 PM Referred By: Confirmed By:JAIME GOINS MD
--- NOTE | 2017-08-06 12:25 | EKG ---
Test Reason : Blood Pressure : / mmHG Vent. Rate : 105 BPM Atrial Rate : 105 BPM P-R Int : 142 ms QRS Dur : 074 ms QT Int : 346 ms P-R-T Axes : 068 064 059 degrees QTc Int : 457 ms SINUS TACHYCARDIA NONSPECIFIC ST ABNORMALITY BORDERLINE ECG Confirmed by MD BRISEIDA, JAIME ([id number]) on 08/06/2017 12:24:59 PM Referred By: Confirmed By:JAIME GOINS MD
[2017-08-06] MEDS: NICOTINE 21 MG/24 HOURS TOPICAL PATCH TD SCH (13:17)
[2017-08-06] MEDS: PRENATAL VITAMINS W/ FOLIC ACID TABLET (FP) PO SCH (13:17)
--- NOTE | 2017-08-06 13:37 | PN ---
BHS COWS - Scale Resting Pulse: 2= [place] 101-120 Sweatin=Flushed/Facial Moisture Restless Observation: 1= Difficult to Sit Still Pupil Size: 0= Normal to Room Light Bone or Joint Aches: 2= Severe Diffuse Aches Runny Nose/ Eye Tearin= Nasal Congestion GI Upset > 30mins: 1= Stomach Cramp Tremor Observation of Outstretched Hands: 1= Tremor [place], Not Seen Yawning Observation: 0= None Anxiety or Irritability: 2=Irritable/Anxious Goose Flesh Skin: 0=Smooth Skin COWS Score: 12 BHS Progress Note (SOAP) Subjective: joint aches restless shakes Objective: 08/06/17 13:35 Vital Signs Temperature 98.6 F 08/06/17 06:00 Pulse Rate 107 H 08/06/17 06:00 Respiratory Rate 18 08/06/17 06:00 Blood Pressure 123/74 08/06/17 06:00 O2 Sat by Pulse Oximetry (%) Laboratory Last Values WBC 6.4 K/mm3 (4.0-10.0) 08/06/17 07:40 RBC 4.39 M/mm3 (3.60-5.2) 08/06/17 07:40 Hgb 11.7 GM/dL (10.7-15.3) D 08/06/17 07:40 Hct 35.7 % (32.4-45.2) 08/06/17 07:40 MCV 81.3 fl (80-96) 08/06/17 07:40 MCH 26.6 pg (25.7-33.7) 08/06/17 07:40 MCHC 32.7 g/dl (32.0-36.0) 08/06/17 07:40 RDW 18.4 % (11.6-15.6) H 08/06/17 07:40 Plt Count 291 K/MM3 (134-434) D 08/06/17 07:40 MPV 8.2 fl (7.5-11.1) 08/06/17 07:40 Sodium 138 mmol/L (136-145) 08/06/17 07:40 Potassium 4.2 mmol/L (3.5-5.1) 08/06/17 07:40 Chloride 103 mmol/L (98-107) 08/06/17 07:40 Carbon Dioxide 27 mmol/L (21-32) 08/06/17 07:40 Anion Gap 8 (8-16) 08/06/17 07:40 BUN 17 mg/dL (7-18) 08/06/17 07:40 Creatinine 0.6 mg/dL (0.55-1.02) 08/06/17 07:40 Creat Clearance w eGFR > 60 (>60) 08/06/17 07:40 Random Glucose 100 mg/dL (74-106) 08/06/17 07:40 Calcium 8.5 mg/dL (8.5-10.1) 08/06/17 07:40 Total Bilirubin 0.9 mg/dL (0.2-1.0) D 08/06/17 07:40 AST 23 U/L (15-37) 08/06/17 07:40 ALT 49 U/L (12-78) 08/06/17 07:40 Alkaline Phosphatase 136 U/L (45-117) H 08/06/17 07:40 Total Protein 7.3 g/dl (6.4-8.2) 08/06/17 07:40 Albumin 3.5 g/dl (3.4-5.0) 08/06/17 07:40 Urine Color Yellow 08/05/17 22:36 Urine Appearance Turbid 08/05/17 22:36 Urine pH 5.0 (5.0-8.0) 08/05/17 22:36 Ur Specific [place] 1.023 (1.001-1.035) 08/05/17 22:36 Urine Protein Negative (NEGATIVE) 08/05/17 22:36 Urine Glucose (UA) Negative (NEGATIVE) 08/05/17 22:36 Urine Ketones Negative (NEGATIVE) 08/05/17 22:36 Urine Blood Negative (NEGATIVE) 08/05/17 22:36 Urine Nitrite Negative (NEGATIVE) 08/05/17 22:36 Urine Bilirubin Negative (NEGATIVE) 08/05/17 22:36 Urine Urobilinogen 2.0 mg/dL (0.2-1.0) H 08/05/17 22:36 Ur Leukocyte Esterase Negative (NEGATIVE) 08/05/17 22:36 RPR Titer Nonreactive (NONREACTIVE) 08/06/17 07:40 labs and VS noted Assessment: 08/06/17 13:37 withdrawal sx Plan: continue detox
[2017-08-06] MEDS: diazePAM 5 MG TABLET PO PRN ×2 (15:11→20:58)
--- NOTE | 2017-08-06 16:53 | CONSULT ---
[facility] Psychiatric Consult - Data Date of interview: 08/06/17 Admission source: [facility] Identifying data: Readmission to [facility] for this 41 y/o female seeking detox treatment for alcohol,heroin and xanax dependence.Patient is without children,domiciled,unemployed and supported by relatives. Substance Abuse History: Smoking history: Current every day smoker. Have you smoked in the past 12 months: Yes. Aproximately how many cigarettes per day: 20. Cigars Per Day: 0. Hx Chewing Tobacco Use: No. Initiated information on smoking cessation: Yes. 'Breaking Loose' booklet given: 08/05/17. - Substance & Tx. History. Hx Alcohol Use: Yes. Hx Substance Use: Yes. Substance Use Type : Heroin. Hx Substance Use Treatment: Yes ([facility] 07/25-07/29/17). - Substances Abused. Heroin. Route: Injection. Frequency: 3-6 times per week. Amount used: 2 bags. Age of first use: 36. Date of Last Use: 08/04/17 Medical History: Emphysema,withdrawal-related seizures,sciatica,breast surgery ( augmentation),chronic back pain and history of orthosurgery (right shoulder). Psychiatric History: Patient denies history of psychiatric hospitalizations.Prescribed xanax,remeron 30 mg/hs,pristiq 50 mg/day and dextroamphetamine by a private psychiatrist,Dr Cornejo,in [facility] for insomnia.Diagnosed with MDD/Anxiety Disorder.Ms Boss denies history of suicide attempts. Physical/Sexual Abuse/Trauma History: Patient denies. Additional Comment: Urine Drug Screen Results: MIHAELA-Cocaine, OPI-Opiates, BZO- Benzodiazepines, MTD-Methadone, OXY-Oxycodone.Noted. Mental Status Exam - Mental Status Exam Alert and Oriented to: Time, Place, Person Cognitive Function: Grossly Intact Patient Appearance: Disheveled (short stature) Mood: Withdrawn Affect: Mood Congruent, Constricted Patient Behavior: Sedated (mildly sedated), Fatigued Speech Pattern: Appropriate, Slurred Voice Loudness: Normal Thought Process: Goal Oriented Thought Disorder: Not Present Hallucinations: Denies Suicidal Ideation: Denies Homicidal Ideation: Denies Insight/Judgement: Poor Sleep: Poorly, Difficulty falling asleep Appetite: Fair Muscle strength/Tone: Normal Gait/Station: Other (slow gait) Psychiatric Findings - Problem List ([place] 1, 2,3) (1) Opioid dependence with withdrawal Current Visit: Yes Status: Acute (2) Sedative, hypnotic or anxiolytic dependence with withdrawal, uncomplicated Current Visit: Yes Status: Acute (3) Cocaine dependence Current Visit: Yes Status: Acute (4) Nicotine dependence Current Visit: Yes Status: Acute Qualifiers: Nicotine product type: cigarettes Substance use status: uncomplicated Qualified Code(s): F17.210 - Nicotine dependence, cigarettes, uncomplicated (5) Drug-induced mood disorder Current Visit: Yes Status: Acute (6) MDD (major depressive disorder) Current Visit: Yes Status: Chronic Comment: As per history.Currently managed by a private psychiatrist in [facility].On medications. (7) Insomnia Current Visit: Yes Status: Acute - Initial Treatment Plan Initial Treatment Plan: Records at [facility] revisited.Psychoeducation and support provided in this session.Detoxification in effect.Medication : remeron 15 mg po hs (reduced in view of current sedation).Titration to follow in next 24 -48 hours if clinically indicated.Side effects/benefits discussed with the patient.Medications checked via review of pharmacy claims ([employer] [facility] on 07/31/17).Patient expressed her agreement to this careplan.Observation.NO scripts required at discharge (detox) from [facility].
[2017-08-06] MEDS: THIAMINE HCL 100 MG TABLET (FP) PO SCH (22:32)
[2017-08-06] MEDS: MIRTAZAPINE 15 MG TABLET (FP) PO SCH (22:32)
[2017-08-07] MEDS ORDERED: METHADONE HCL 5 MG TABLET (FOR DETOX USE ONLY) PO ONE (10:00)
--- NOTE | 2017-08-07 10:15 | PN ---
[facility] CIWA - CIWA Score Nausea/Vomitin-Mild Nausea/No Vomiting Muscle Tremors: 3 Anxiety: 2 Agitation: 2 Paroxysmal Sweats: 1-Minimal Palms Moist Orientation: 0-Oriented Tacttile Disturbances: 0-None Auditory Disturbances: 0-None Visual Disturbances: 0-None Headache: 0-None Present CIWA-Ar Total Score: 9 BHS Progress Note (SOAP) Subjective: GI distress tremor restlessness joint ache Objective: 08/07/17 10:14 Vital Signs Temperature 97.9 F 08/07/17 06:00 Pulse Rate 80 08/07/17 06:00 Respiratory Rate 18 08/07/17 06:00 Blood Pressure 98/57 08/07/17 06:00 O2 Sat by Pulse Oximetry (%) Laboratory Last Values WBC 6.4 K/mm3 (4.0-10.0) 08/06/17 07:40 RBC 4.39 M/mm3 (3.60-5.2) 08/06/17 07:40 Hgb 11.7 GM/dL (10.7-15.3) D 08/06/17 07:40 Hct 35.7 % (32.4-45.2) 08/06/17 07:40 MCV 81.3 fl (80-96) 08/06/17 07:40 MCH 26.6 pg (25.7-33.7) 08/06/17 07:40 MCHC 32.7 g/dl (32.0-36.0) 08/06/17 07:40 RDW 18.4 % (11.6-15.6) H 08/06/17 07:40 Plt Count 291 K/MM3 (134-434) D 08/06/17 07:40 MPV 8.2 fl (7.5-11.1) 08/06/17 07:40 Sodium 138 mmol/L (136-145) 08/06/17 07:40 Potassium 4.2 mmol/L (3.5-5.1) 08/06/17 07:40 Chloride 103 mmol/L (98-107) 08/06/17 07:40 Carbon Dioxide 27 mmol/L (21-32) 08/06/17 07:40 Anion Gap 8 (8-16) 08/06/17 07:40 BUN 17 mg/dL (7-18) 08/06/17 07:40 Creatinine 0.6 mg/dL (0.55-1.02) 08/06/17 07:40 Creat Clearance w eGFR > 60 (>60) 08/06/17 07:40 Random Glucose 100 mg/dL (74-106) 08/06/17 07:40 Calcium 8.5 mg/dL (8.5-10.1) 08/06/17 07:40 Total Bilirubin 0.9 mg/dL (0.2-1.0) D 08/06/17 07:40 AST 23 U/L (15-37) 08/06/17 07:40 ALT 49 U/L (12-78) 08/06/17 07:40 Alkaline Phosphatase 136 U/L (45-117) H 08/06/17 07:40 Total Protein 7.3 g/dl (6.4-8.2) 08/06/17 07:40 Albumin 3.5 g/dl (3.4-5.0) 08/06/17 07:40 Urine Color Yellow 08/05/17 22:36 Urine Appearance Turbid 08/05/17 22:36 Urine pH 5.0 (5.0-8.0) 08/05/17 22:36 Ur Specific [place] 1.023 (1.001-1.035) 08/05/17 22:36 Urine Protein Negative (NEGATIVE) 08/05/17 22:36 Urine Glucose (UA) Negative (NEGATIVE) 08/05/17 22:36 Urine Ketones Negative (NEGATIVE) 08/05/17 22:36 Urine Blood Negative (NEGATIVE) 08/05/17 22:36 Urine Nitrite Negative (NEGATIVE) 08/05/17 22:36 Urine Bilirubin Negative (NEGATIVE) 08/05/17 22:36 Urine Urobilinogen 2.0 mg/dL (0.2-1.0) H 08/05/17 22:36 Ur Leukocyte Esterase Negative (NEGATIVE) 08/05/17 22:36 RPR Titer Nonreactive (NONREACTIVE) 08/06/17 07:40 lab noted Assessment: 08/07/17 10:14 withdrawal sx Plan: continue detox
[2017-08-07] MEDS: PRENATAL VITAMINS W/ FOLIC ACID TABLET (FP) PO SCH (10:43)
[2017-08-07] MEDS: NICOTINE 21 MG/24 HOURS TOPICAL PATCH TD SCH (10:44)
[2017-08-07] MEDS: diazePAM 5 MG TABLET PO PRN ×4 (10:45→23:38)
[2017-08-07] MEDS: RANITIDINE HCL 150 MG TABLET (FP) PO SCH ×2 (11:00→22:31)
[2017-08-07] MEDS: hydrOXYzine PAMOATE 50 MG CAPSULE (FP) PO PRN ×3 (12:25→22:31)
[2017-08-07] MEDS: MIRTAZAPINE 15 MG TABLET (FP) PO SCH (22:31)
[2017-08-07] MEDS: THIAMINE HCL 100 MG TABLET (FP) PO SCH (22:31)
[2017-08-08] MEDS ORDERED: METHADONE HCL 5 MG TABLET (FOR DETOX USE ONLY) PO ONE (10:00)
[2017-08-08] MEDS: PRENATAL VITAMINS W/ FOLIC ACID TABLET (FP) PO SCH (10:40)
[2017-08-08] MEDS: RANITIDINE HCL 150 MG TABLET (FP) PO SCH ×2 (10:40→22:29)
[2017-08-08] MEDS: NICOTINE 21 MG/24 HOURS TOPICAL PATCH TD SCH (10:42)
[2017-08-08] MEDS: diazePAM 5 MG TABLET PO PRN ×3 (10:43→19:06)
--- NOTE | 2017-08-08 13:28 | PN ---
[facility] Progress Note (SOAP) Subjective: anxious sleep disturbance Objective: 08/08/17 13:25 Vital Signs Temperature 97.2 F L 08/08/17 10:38 Pulse Rate 87 08/08/17 10:38 Respiratory Rate 18 08/08/17 10:38 Blood Pressure 100/60 08/08/17 10:38 O2 Sat by Pulse Oximetry (%) Laboratory Last Values WBC 6.4 K/mm3 (4.0-10.0) 08/06/17 07:40 RBC 4.39 M/mm3 (3.60-5.2) 08/06/17 07:40 Hgb 11.7 GM/dL (10.7-15.3) D 08/06/17 07:40 Hct 35.7 % (32.4-45.2) 08/06/17 07:40 MCV 81.3 fl (80-96) 08/06/17 07:40 MCH 26.6 pg (25.7-33.7) 08/06/17 07:40 MCHC 32.7 g/dl (32.0-36.0) 08/06/17 07:40 RDW 18.4 % (11.6-15.6) H 08/06/17 07:40 Plt Count 291 K/MM3 (134-434) D 08/06/17 07:40 MPV 8.2 fl (7.5-11.1) 08/06/17 07:40 Sodium 138 mmol/L (136-145) 08/06/17 07:40 Potassium 4.2 mmol/L (3.5-5.1) 08/06/17 07:40 Chloride 103 mmol/L (98-107) 08/06/17 07:40 Carbon Dioxide 27 mmol/L (21-32) 08/06/17 07:40 Anion Gap 8 (8-16) 08/06/17 07:40 BUN 17 mg/dL (7-18) 08/06/17 07:40 Creatinine 0.6 mg/dL (0.55-1.02) 08/06/17 07:40 Creat Clearance w eGFR > 60 (>60) 08/06/17 07:40 Random Glucose 100 mg/dL (74-106) 08/06/17 07:40 Calcium 8.5 mg/dL (8.5-10.1) 08/06/17 07:40 Total Bilirubin 0.9 mg/dL (0.2-1.0) D 08/06/17 07:40 AST 23 U/L (15-37) 08/06/17 07:40 ALT 49 U/L (12-78) 08/06/17 07:40 Alkaline Phosphatase 136 U/L (45-117) H 08/06/17 07:40 Total Protein 7.3 g/dl (6.4-8.2) 08/06/17 07:40 Albumin 3.5 g/dl (3.4-5.0) 08/06/17 07:40 Urine Color Yellow 08/05/17 22:36 Urine Appearance Turbid 08/05/17 22:36 Urine pH 5.0 (5.0-8.0) 08/05/17 22:36 Ur Specific [place] 1.023 (1.001-1.035) 08/05/17 22:36 Urine Protein Negative (NEGATIVE) 08/05/17 22:36 Urine Glucose (UA) Negative (NEGATIVE) 08/05/17 22:36 Urine Ketones Negative (NEGATIVE) 08/05/17 22:36 Urine Blood Negative (NEGATIVE) 08/05/17 22:36 Urine Nitrite Negative (NEGATIVE) 08/05/17 22:36 Urine Bilirubin Negative (NEGATIVE) 08/05/17 22:36 Urine Urobilinogen 2.0 mg/dL (0.2-1.0) H 08/05/17 22:36 Ur Leukocyte Esterase Negative (NEGATIVE) 08/05/17 22:36 RPR Titer Nonreactive (NONREACTIVE) 08/06/17 07:40 labs noted Assessment: 08/08/17 13:26 withdrawal sx Plan: continue detox for discharge tomorrow
--- NOTE | 2017-08-08 13:37 | PN ---
[facility] Progress Note Note: Per Counselor Marcelle, pt has been promised a rehab bed at [facility] for tomorrow. Pt therefore for discharge tomorrow. P Pt A & O x 3, tolerating detox well, shows no adverse withdrawal symptoms.
--- NOTE | 2017-08-08 17:15 | PN ---
Psychiatric Progress Note Vital Signs: Vital Signs Period Temp Pulse Resp BP Sys/Alaniz Pulse Ox Last 24 Hr 96.1 F-97.9 F 74-115 16-20 90-123/52-71 Date of Session: 08/08/17 Chief Complaint:: [facility] HPI: Pt. admitted to for alcohol,heroin and xanax dependence. ROS: Unremarkable. Current Medications: Active Medications Generic Name Dose Route Start Last Admin Trade Name Freq PRN Reason Stop Dose Admin Acetaminophen 650 mg 08/05/17 22:32 Tylenol - PO Q4H PRN FEVER Al Hydroxide/Mg Hydroxide 30 ml 08/05/17 22:32 Mylanta Oral Suspension - PO Q6H PRN DYSPEPSIA Diazepam 10 mg 08/05/17 22:32 08/08/17 14:58 Valium - PO 08/08/17 22:31 10 mg Q4H PRN Administration WITHDRAWAL(CONT SUBST) Eucalyptus/Menthol/Phenol/Sorbitol 1 each 08/05/17 22:32 Cepastat Lozenge - MM Q4H PRN SORE THROAT Guaifenesin 10 ml 08/05/17 22:32 Robitussin Dm - PO Q6H PRN COUGH Hydroxyzine Pamoate 50 mg 08/05/17 22:32 08/07/17 22:31 Vistaril - PO 50 mg Q4H PRN Administration AGITATION Loperamide HCl 4 mg 08/05/17 22:32 Imodium - PO Q6H PRN DIARRHEA Magnesium Citrate 300 ml 08/05/17 22:32 Citroma - PO Q48H PRN CONSTIPATION Magnesium Hydroxide 30 ml 08/05/17 22:32 Milk Of Magnesia - PO DAILY PRN CONSTIPATION Methadone HCl 5 mg 08/09/17 06:00 Dolophine - PO 08/09/17 06:01 ONCE@0600 ONE Mirtazapine 15 mg 08/06/17 22:00 08/07/17 22:31 Remeron - PO 15 mg HS HELLEN Administration Nicotine 21 mg 08/06/17 10:00 08/08/17 10:42 Nicoderm Patch - TD Not Given DAILY HELLEN Nicotine Polacrilex 2 mg 08/05/17 22:32 Nicorette Gum - BC Q2H PRN NICOTINE REPLACEMENT RX Multivit/Folic Acid/Iron 1 tab 08/06/17 10:00 08/08/17 10:40 Vitamins (Sjr) - PO 1 tab DAILY HELLEN Administration Pseudoephedrine/Triprolidine 1 combo 08/05/17 22:32 Actifed - PO TID PRN NASAL CONGESTION Ranitidine HCl 150 mg 08/07/17 10:15 08/08/17 10:40 Zantac - PO 150 mg BID HELLEN Administration Thiamine HCl 100 mg 08/06/17 22:00 08/07/17 22:31 Vitamin B1 - PO 100 mg HS HELLEN Administration Medication(s) Change(s): Yes. Increased in medication. Mirtazapine 30mg qhs ordered. Current Side Effect: No Lab tests ordered: No Lab tests reviewed: Yes Provider note:: Tierce Filler approached patient in reference to psychiatric consultation. Pt. reports poor sleep. Requesting additional sleep aid. Mirtazapine increased to 30mg. As per pharmacy claims patient was given a prescription of mirtazapine 30mg on 07/30/17. States she last took mirtazapine 30mg before admitting self to detox. Sleep hygiene provided. Benefits and side effects discussed. Verbal consent given. Will continue to monitor. Total face to face time:: 25 Mental Status Exam - Mental Status Exam Alert and Oriented to: Time, Place, Person Cognitive Function: Good Patient Appearance: Well Groomed Mood: Anxious, Hopeful Affect: Mood Congruent Patient Behavior: Talkative, Cooperative Speech Pattern: Clear Voice Loudness: Normal Thought Process: Goal Oriented Thought Disorder: Not Present Hallucinations: Denies Suicidal Ideation: Denies Homicidal Ideation: Denies Insight/Judgement: Poor Sleep: Poorly Appetite: Fair Muscle strength/Tone: Normal Gait/Station: Normal Psychiatric Treatment Plan - Problem List (1) Cocaine dependence Current Visit: Yes (2) Drug-induced mood disorder Current Visit: Yes (3) Insomnia Current Visit: Yes (4) Nicotine dependence Current Visit: Yes Qualifiers: Nicotine product type: cigarettes Substance use status: uncomplicated Qualified Code(s): F17.210 - Nicotine dependence, cigarettes, uncomplicated (5) Opioid dependence with withdrawal Current Visit: Yes (6) Sedative, hypnotic or anxiolytic dependence with withdrawal, uncomplicated Current Visit: Yes (7) MDD (major depressive disorder) Current Visit: Yes Comment: As per history.Currently managed by a private psychiatrist in [facility].On medications.
[2017-08-08] MEDS ORDERED: MIRTAZAPINE 30 MG TABLET (FP) PO SCH (17:18)
[2017-08-08] MEDS: THIAMINE HCL 100 MG TABLET (FP) PO SCH (22:29)
[2017-08-09] MEDS ORDERED: METHADONE HCL 5 MG TABLET (FOR DETOX USE ONLY) PO ONE (06:00)
[2017-08-09 09:50] VITALS: BP 143/83; PULSE 81; TEMP 97.5
[2017-08-09] MEDS ORDERED: METHADONE HCL 10 MG TABLET (FOR DETOX USE ONLY) PO ONE (10:00)
--- NOTE | 2017-08-09 11:08 | DS ---
[facility] Detox Discharge Summary Admission Date: 08/05/17 Discharge Date: 08/09/17 - History Present History: Opioid Dependence, Sedative Dependence - Physical Exam Results Vital Signs: Vital Signs Temperature 97.5 F L 08/09/17 09:49 Pulse Rate 81 08/09/17 09:49 Respiratory Rate 18 08/09/17 09:49 Blood Pressure 143/83 08/09/17 09:49 O2 Sat by Pulse Oximetry (%) Pertinent Admission Physical Exam Findings: withdrawal sx Vital Signs Temperature 97.5 F L 08/09/17 09:49 Pulse Rate 81 08/09/17 09:49 Respiratory Rate 18 08/09/17 09:49 Blood Pressure 143/83 08/09/17 09:49 O2 Sat by Pulse Oximetry (%) Laboratory Last Values WBC 6.4 K/mm3 (4.0-10.0) 08/06/17 07:40 RBC 4.39 M/mm3 (3.60-5.2) 08/06/17 07:40 Hgb 11.7 GM/dL (10.7-15.3) D 08/06/17 07:40 Hct 35.7 % (32.4-45.2) 08/06/17 07:40 MCV 81.3 fl (80-96) 08/06/17 07:40 MCH 26.6 pg (25.7-33.7) 08/06/17 07:40 MCHC 32.7 g/dl (32.0-36.0) 08/06/17 07:40 RDW 18.4 % (11.6-15.6) H 08/06/17 07:40 Plt Count 291 K/MM3 (134-434) D 08/06/17 07:40 MPV 8.2 fl (7.5-11.1) 08/06/17 07:40 Sodium 138 mmol/L (136-145) 08/06/17 07:40 Potassium 4.2 mmol/L (3.5-5.1) 08/06/17 07:40 Chloride 103 mmol/L (98-107) 08/06/17 07:40 Carbon Dioxide 27 mmol/L (21-32) 08/06/17 07:40 Anion Gap 8 (8-16) 08/06/17 07:40 BUN 17 mg/dL (7-18) 08/06/17 07:40 Creatinine 0.6 mg/dL (0.55-1.02) 08/06/17 07:40 Creat Clearance w eGFR > 60 (>60) 08/06/17 07:40 Random Glucose 100 mg/dL (74-106) 08/06/17 07:40 Calcium 8.5 mg/dL (8.5-10.1) 08/06/17 07:40 Total Bilirubin 0.9 mg/dL (0.2-1.0) D 08/06/17 07:40 AST 23 U/L (15-37) 08/06/17 07:40 ALT 49 U/L (12-78) 08/06/17 07:40 Alkaline Phosphatase 136 U/L (45-117) H 08/06/17 07:40 Total Protein 7.3 g/dl (6.4-8.2) 08/06/17 07:40 Albumin 3.5 g/dl (3.4-5.0) 08/06/17 07:40 Urine Color Yellow 08/05/17 22:36 Urine Appearance Turbid 08/05/17 22:36 Urine pH 5.0 (5.0-8.0) 08/05/17 22:36 Ur Specific [place] 1.023 (1.001-1.035) 08/05/17 22:36 Urine Protein Negative (NEGATIVE) 08/05/17 22:36 Urine Glucose (UA) Negative (NEGATIVE) 08/05/17 22:36 Urine Ketones Negative (NEGATIVE) 08/05/17 22:36 Urine Blood Negative (NEGATIVE) 08/05/17 22:36 Urine Nitrite Negative (NEGATIVE) 08/05/17 22:36 Urine Bilirubin Negative (NEGATIVE) 08/05/17 22:36 Urine Urobilinogen 2.0 mg/dL (0.2-1.0) H 08/05/17 22:36 Ur Leukocyte Esterase Negative (NEGATIVE) 08/05/17 22:36 RPR Titer Nonreactive (NONREACTIVE) 08/06/17 07:40 lab noted - Treatment Hospital Course: Detox Protocol Followed, Detoxed Safely, Responded well, Discharged Condition Good, Rehab Referral Accepted Patient has Accepted a Rehab Referral to: as per counselor arranged - Medication Discharge Medications: Ambulatory Orders Escitalopram Oxalate [Lexapro -] 5 mg PO HS 06/22/17 Mupirocin Ointment [Bactroban 2% Ointment -] 1 applic TP TID 06/28/17 Mirtazapine [Remeron -] 15 mg PO HS #30 tablet 06/29/17 - Diagnosis (1) Nicotine dependence Status: Acute Qualifiers: Nicotine product type: cigarettes Substance use status: in withdrawal Qualified Code(s): F17.213 - Nicotine dependence, cigarettes, with withdrawal (2) Opioid dependence with withdrawal Status: Acute (3) Sedative, hypnotic or anxiolytic dependence with withdrawal, uncomplicated Status: Acute (4) Nicotine dependence Status: Acute Qualifiers: Nicotine product type: cigarettes Substance use status: in withdrawal Qualified Code(s): F17.213 - Nicotine dependence, cigarettes, with withdrawal - AMA Did Patient Leave Against Medical Advice: No
[2017-08-10] MEDS ORDERED: METHADONE HCL 5 MG TABLET (FOR DETOX USE ONLY) PO ONE (06:00)
== END 2017-08-09 09:15 | disposition home or self-care (01) | DRG 773 ==
LOC: YASAS 19:28 → Y6N 22:15
PROVIDERS: ADMIT Internal Medicine; ATTEND Internal Medicine
PROC: HZ2ZZZZ Detoxification Services for Substance Abuse Treatment (ICD-10-PCS; principal; 2017-08-05)
DX: F11.23 Opioid dependence with withdrawal (principal); F13.230 Sedative, hypnotic or anxiolytic dependence with withdrawal, uncomplicated; F14.20 Cocaine dependence, uncomplicated; F17.210 Nicotine dependence, cigarettes, uncomplicated; F19.24 Other psychoactive substance dependence with psychoactive substance-induced mood disorder; F33.9 Major depressive disorder, recurrent, unspecified; G47.00 Insomnia, unspecified; J43.9 Emphysema, unspecified; Z86.69 Personal history of other diseases of the nervous system and sense organs
CPT/HCPCS: 36415; 80053; 81003; 85027; 86593; 93005; 93010